=== PATIENT | male | born 1975 | race Caucasian/White ===

== ENCOUNTER 2020-04-27 09:11 | Emergency (ER) | payer OTHER, SELFPAY ==
[2020-04-27 09:19] VITALS: BP 171/91; PULSE 108; RESP 18; TEMP 37; O2SAT 94; BMI 41.8
--- NOTE | 2020-04-27 09:38 | ECG_ITS ---
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 Measurements Intervals [place] Rate: 105 P: 45 CA: 156 QRS: 33 QRSD: 116 T: 67 QT: 337 QTc: 447 Interpretive Statements SINUS TACHYCARDIA MODERATE INTRAVENTRICULAR CONDUCTION DELAY [110+ ms QRS DURATION] NONSPECIFIC T-WAVE ABNORMALITY ABNORMAL RHYTHM ECG Compared to ECG 07/29/2019 08:20:56 Intraventricular conduction delay now present Sinus rhythm no longer present T-wave abnormality still present Electronically Signed On 04-27-2020 19:41:54 CDT by Timur Contreras M.D. [id number]
--- NOTE | 2020-04-27 09:38 | XRR_ITS ---
PROCEDURE INFORMATION: Exam: XR Chest, 1 View Exam date and time: 04/27/2020 10:03 AM Age: 44 years old Clinical indication: Cough and dyspnea. TECHNIQUE: Imaging protocol: XR of the chest Views: 1 view. COMPARISON: CR Chest 1 [place] [id number] 07/29/2019 6:34 AM FINDINGS: Lungs: No lung consolidation or pulmonary edema. Pleural space: No pleural effusion or pneumothorax. Heart/Mediastinum: The cardiac silhouette is not enlarged. The mediastinal contours are normal. Bones/joints: No acute osseous abnormality. XR/XR chest 1V portable [id number] IMPRESSION: No acute abnormality.
--- NOTE | 2020-04-27 09:59 | W.ED.GENADLT ---
HPI - General Adult General: Chief complaint: General Medical Stated complaint: cough, body aches, dizzy, fever Time Seen by Provider: 04/27/20 09:12 History of Present Illness: HPI narrative: 44-year-old male comes in slight cough and fever that began yesterday is also had headache and myalgias been nauseous and dizzy the cough is been very minimally productive but of mostly clear sputum he had a low-grade temp at home of 99 7 had that initially on screening here but then when he got back to the exam room and was triaged it was measured at 98 6. He is not been around anyone he knows of that has COVID but he has been around several people who have been sick with symptoms suspicious for COVID. He does have a history of asthma. Onset (ago): day(s) Location: head and chest Radiation: non-radiation Severity: moderate Quality: dull (Headache) Relieving factors: none Exacerbating factors: none Associated symptoms: Reports cough, decreased appetite, dyspnea, fevers/chills, headache(s), malaise, nausea and short of breath; Deny chest pain, confusion, diaphoresis, rash, palpitations, seizures, syncope, vomiting or weakness Treatments prior to arrival: none Review of Systems Const: Reports: malaise; Denies: diaphoresis ENMT: Denies: throat pain, ear or mastoid pain, nasal discharge or nasal congestion Card: Denies: chest pain, palpitations or syncope Resp: Reports: dyspnea GI: Reports: nausea; Denies: vomiting : Denies: flank pain, dysuria, urinary frequency or urinary urgency Skin/Breast: Denies: rash Neuro: Reports: headache(s); Denies: confusion PFSH ED PFSH: Medical History (Updated 04/27/20 @ 12:04 by Baltazar Mock DO) Asthma Diabetes mellitus GERD (gastroesophageal reflux disease) Hypertension Morbid obesity Right tibial fracture Social History (Updated 04/27/20 @ 10:03 by Baltazar Mock DO) Smoking and tobacco status: never smoked Alcohol intake: current Alcohol intake frequency: few times a month Physical Exam Const: COMMON NORMALS: no acute distress GENERAL APPEARANCE: cooperative and comfortable ORIENTATION/CONSCIOUSNESS: Yes awake, Yes oriented to person, Yes oriented to place and Yes oriented to time HENMT: COMMON NORMALS: normocephalic, atraumatic and hearing grossly normal bilaterally HEAD & SCALP: normocephalic and atraumatic Eye: COMMON NORMALS: Equal, round and reactive pupils present, EOMs intact bilaterally, conjunctivae normal and no scleral icterus CONJUNCTIVA: Yes conjunctivae normal PUPIL: Yes Equal, round and reactive pupils present Neck/C-Spine: COMMON NORMALS: full ROM, no lymphadenopathy, supple and no JVD Lymph: LYMPHATIC: no lymphadenopathy noted and no lymphedema noted Resp: COMMON NORMALS: normal respiratory effort, No retractions and No use of accessory muscles AUSCULTATION: wheezes (Scant bilateral expiratory wheeze) expiratory wheezes and scattered wheezes Cardio: COMMON NORMALS: no JVD, regular rate, regular rhythm and No murmurs present (Cardio) RATE: regular rate RHYTHM: regular rhythm GI: COMMON NORMALS: Soft to palpation and No hepatosplenomegaly present AUSCULTATION: Yes normoactive bowel sounds PALPATION: Yes Soft to palpation, No Tenderness to palpation present (GI), No Guarding due to palpation present (GI) and Yes No hepatosplenomegaly present Extremity: COMMON NORMALS: normal to inspection, capillary refill normal, no clubbing, cyanosis or edema, no calf tenderness and no pedal edema Neuro: SENSORIUM/ORIENTATION: Yes oriented to person, Yes oriented to place and Yes oriented to time Skin: COMMON NORMALS: no rashes or lesions noted GENERAL SKIN EXAM: no rashes or lesions noted Course Vital Signs: Vital signs: Vital Signs Temperature 98.6 F 04/27/20 09:19 Pulse Rate 106 H 04/27/20 12:22 Respiratory Rate 16 04/27/20 12:22 Blood Pressure 140/73 04/27/20 12:22 Pulse Oximetry 96 04/27/20 12:22 MDM - General Adult MDM Narrative: Medical decision making narrative: Discussed the patient suspect he does have COVID-19 recommend he self quarantine until the results are available. If he has any worsening problems difficulty breathing or shortness of breath he should return to the emergency room use albuterol inhaler as needed. Lab Data: Labs: Lab Results 04/27/20 04/27/20 04/27/20 Range/Units 10:09 10:19 10:19 WBC (4.0-10.0) 10^3/ uL RBC (4.1-5.3) 10^6/u L Hgb (11.7-16.6) g/dL Hct (42.0-52.0) % MCV (80-94) fL MCH (28.0-34.0) pg MCHC (30.0-36.0) g/dL RDW (12.1-15.1) % Plt Count (130-400) 10^3/c mm MPV (7.4-10.4) fL Neut % (Auto) % Lymph % (Auto) % [place] % (Auto) % Eos % (Auto) % Baso % (Auto) % Neut # (Auto) (1.8-7.7) 10^3/u L Lymph # (Auto) (0.8-4.8) 10^3/u L [place] # (Auto) (0.2-0.9) 10^3/u L Eos # (Auto) (0.0-0.8) 10^3/u L Baso # (Auto) (0.0-0.1) 10^3/u L Nucleated RBC % (a uto) % Nucleated RBCs # /100WBC Fibrinogen 297 (174-498) mg/dL D-Dimer <= 0.27 (0-0.59) ug/mIFE U Specimen Type Arterial Sample Site Radial, left ABG pH 7.45 (7.35-7.45) ABG pCO2 39.3 (35-45) mmHg ABG pO2 72.9 L (80.0-100.0) mmH g ABG HCO3 27.1 H (22-26) mmol/L ABG Base Excess 2.9 H (-2.0-2.0) mmol/ L Aman Test Pos Hematocrit 42.2 (42-52) % O2 Delivery Device Room air FiO2 21.0 % Regional Environmental Manager ID Cak Sodium 136 (136-145) mmol/L Potassium 3.8 (3.5-5.1) mmol/L Chloride 98 (98-107) mmol/L Carbon Dioxide 26 (22-29) mmol/L Anion Gap 15.8 (5-19) BUN 12 (6-20) mg/dL Creatinine 0.9 (0.7-1.2) mg/dL GFR Calculation 91.3 (90-130) mL/min Glucose 205 H (65-115) mg/dL Calculated Osmolal ity 284 L (285-295) mOsm/k g Calcium 8.7 (8.5-10.5) mg/dL Ferritin 83 (30-400) ng/mL Total Bilirubin 0.3 (0.15-1.2) mg/dL AST 25 (0-40) U/L ALT 40 (0-41) U/L Alkaline Phosphata se 82 (40-130) IU/L Lactate Dehydrogen ase 174 (135-225) U/L Troponin T Baselin e (0-15) ng/L C-Reactive Protein 10.8 H (0.0-4.9) mg/L Total Protein 8.1 (6.6-8.7) g/dL Albumin 4.4 (3.5-5.2) g/dL Globulin 3.7 (1.3-4.6) g/dL Procalcitonin 0.09 (0-0.5) ng/mL Urine Color (Yellow) Urine Appearance (CLEAR) Urine pH (5-7) Ur Specific Gravit y (1.005-1.030) Urine Protein (Negative) Urine Glucose (UA) (Normal) Urine Ketones (Negative) Urine Blood (Negative) Urine Nitrate (Negative) Urine Bilirubin (NEGATIVE) Prot Sulfosalicyli c Acd (Negative) Urine Urobilinogen (Negative) mg/dL Ur Leukocyte [place] (Negative) SARS-CoV-2 RNA (RT -PCR) (NOT DETECTED) 04/27/20 04/27/20 04/27/20 Range/Units 10:19 10:19 10:37 WBC 4.6 (4.0-10.0) 10^3/ uL RBC 5.02 (4.1-5.3) 10^6/u L Hgb 14.3 (11.7-16.6) g/dL Hct 42.9 (42.0-52.0) % MCV 85.5 (80-94) fL MCH 28.5 (28.0-34.0) pg MCHC 33.3 (30.0-36.0) g/dL RDW 13.9 (12.1-15.1) % Plt Count 228 (130-400) 10^3/c mm MPV 10.2 (7.4-10.4) fL Neut % (Auto) 76.1 % Lymph % (Auto) 11.3 % [place] % (Auto) 9.8 % Eos % (Auto) 2.0 % Baso % (Auto) 0.4 % Neut # (Auto) 3.51 (1.8-7.7) 10^3/u L Lymph # (Auto) 0.5 L (0.8-4.8) 10^3/u L [place] # (Auto) 0.5 (0.2-0.9) 10^3/u L Eos # (Auto) 0.1 (0.0-0.8) 10^3/u L Baso # (Auto) 0.0 (0.0-0.1) 10^3/u L Nucleated RBC % (a uto) 0 % Nucleated RBCs # 0.0 /100WBC Fibrinogen (174-498) mg/dL D-Dimer (0-0.59) ug/mIFE U Specimen Type Sample Site ABG pH (7.35-7.45) ABG pCO2 (35-45) mmHg ABG pO2 (80.0-100.0) mmH g ABG HCO3 (22-26) mmol/L ABG Base Excess (-2.0-2.0) mmol/ L Aman Test Hematocrit (42-52) % O2 Delivery Device FiO2 % Regional Environmental Manager ID Sodium (136-145) mmol/L Potassium (3.5-5.1) mmol/L Chloride (98-107) mmol/L Carbon Dioxide (22-29) mmol/L Anion Gap (5-19) BUN (6-20) mg/dL Creatinine (0.7-1.2) mg/dL GFR Calculation (90-130) mL/min Glucose (65-115) mg/dL Calculated Osmolal ity (285-295) mOsm/k g Calcium (8.5-10.5) mg/dL Ferritin (30-400) ng/mL Total Bilirubin (0.15-1.2) mg/dL AST (0-40) U/L ALT (0-41) U/L Alkaline Phosphata se (40-130) IU/L Lactate Dehydrogen ase (135-225) U/L Troponin T Baselin e 6 (0-15) ng/L C-Reactive Protein (0.0-4.9) mg/L Total Protein (6.6-8.7) g/dL Albumin (3.5-5.2) g/dL Globulin (1.3-4.6) g/dL Procalcitonin (0-0.5) ng/mL Urine Color (Yellow) Urine Appearance (CLEAR) Urine pH (5-7) Ur Specific Gravit y (1.005-1.030) Urine Protein (Negative) Urine Glucose (UA) (Normal) Urine Ketones (Negative) Urine Blood (Negative) Urine Nitrate (Negative) Urine Bilirubin (NEGATIVE) Prot Sulfosalicyli c Acd (Negative) Urine Urobilinogen (Negative) mg/dL Ur Leukocyte [place] ase (Negative) SARS-CoV-2 RNA (RT -PCR) Detected A (NOT DETECTED) 04/27/20 Range/Units 11:02 WBC (4.0-10.0) 10^3/ uL RBC (4.1-5.3) 10^6/u L Hgb (11.7-16.6) g/dL Hct (42.0-52.0) % MCV (80-94) fL MCH (28.0-34.0) pg MCHC (30.0-36.0) g/dL RDW (12.1-15.1) % Plt Count (130-400) 10^3/c mm MPV (7.4-10.4) fL Neut % (Auto) % Lymph % (Auto) % [place] % (Auto) % Eos % (Auto) % Baso % (Auto) % Neut # (Auto) (1.8-7.7) 10^3/u L Lymph # (Auto) (0.8-4.8) 10^3/u L [place] # (Auto) (0.2-0.9) 10^3/u L Eos # (Auto) (0.0-0.8) 10^3/u L Baso # (Auto) (0.0-0.1) 10^3/u L Nucleated RBC % (a uto) % Nucleated RBCs # /100WBC Fibrinogen (174-498) mg/dL D-Dimer (0-0.59) ug/mIFE U Specimen Type Sample Site ABG pH (7.35-7.45) ABG pCO2 (35-45) mmHg ABG pO2 (80.0-100.0) mmH g ABG HCO3 (22-26) mmol/L ABG Base Excess (-2.0-2.0) mmol/ L Aman Test Hematocrit (42-52) % O2 Delivery Device FiO2 % Regional Environmental Manager ID Sodium (136-145) mmol/L Potassium (3.5-5.1) mmol/L Chloride (98-107) mmol/L Carbon Dioxide (22-29) mmol/L Anion Gap (5-19) BUN (6-20) mg/dL Creatinine (0.7-1.2) mg/dL GFR Calculation (90-130) mL/min Glucose (65-115) mg/dL Calculated Osmolal ity (285-295) mOsm/k g Calcium (8.5-10.5) mg/dL Ferritin (30-400) ng/mL Total Bilirubin (0.15-1.2) mg/dL AST (0-40) U/L ALT (0-41) U/L Alkaline Phosphata se (40-130) IU/L Lactate Dehydrogen ase (135-225) U/L Troponin T Baselin e (0-15) ng/L C-Reactive Protein (0.0-4.9) mg/L Total Protein (6.6-8.7) g/dL Albumin (3.5-5.2) g/dL Globulin (1.3-4.6) g/dL Procalcitonin (0-0.5) ng/mL Urine Color Yellow (Yellow) Urine Appearance Clear (CLEAR) Urine pH 8.0 H (5-7) Ur Specific Gravit y 1.010 (1.005-1.030) Urine Protein Neg (Negative) Urine Glucose (UA) 4+ H (Normal) Urine Ketones Negative (Negative) Urine Blood Neg (Negative) Urine Nitrate Negative (Negative) Urine Bilirubin Neg (NEGATIVE) Prot Sulfosalicyli c Acd Negative (Negative) Urine Urobilinogen Norm (Negative) mg/dL Ur Leukocyte Cierra ase Negative (Negative) SARS-CoV-2 RNA (RT -PCR) (NOT DETECTED) Discharge Plan Discharge Patient Disposition: Home Clinical Impression: Suspected 2019-nCoV infection, Asthma Condition: Stable Prescriptions: No Action glipizide 10 mg Tablet 10 mg PO BID RF: 0 aspirin 81 mg Tablet,Delayed Release (Dr/Ec) 81 mg PO DAILY RF: 0 ibuprofen 200 mg Tablet 800 mg PO PRN RF: 0 omeprazole 20 mg Capsule,Delayed Release(Dr/Ec) 20 mg PO DAILY RF: 0 lisinopril 5 mg Tablet 5 mg PO DAILY RF: 0 ProAir HFA 90 mcg/actuation Hfa Aerosol Inhaler 2 puff INHALATION Q4H PRN (Reason: Shortness Of Breath) RF: 0 Discharge Orders: Discharge Order (Routine); Ordered 04/27/20 Ordered By: Baltazar Mock Discharge Diet: Usual diet Discharge Activity: Limit activity as instructed Activity Restrictions/Additional Instructions: You were tested for Kovic today. I do suspect that you have the infection. We asked that you self quarantine until the results are back. We will call you soon as they are available Discharge Date/Time: 04/27/20 12:22 Coding Level of Care Code ED Shank Boner for [employer] Fwd Exam Comprehensive
[2020-04-27 10:20] VITALS: BP 161/98; PULSE 112; RESP 19; O2SAT 94
[2020-04-27 10:21] LABS: ABG PCO2 39.3 mmHg (35-45); ABG PH Result 7.45 (7.35-7.45); Arterial Blood Gas Hematocrit 42.2 % (42-52); Base Excess ABG 2.9 mmol/L (-2.0-2.0); Blood Gas Allen Test Pos; Blood Gas Operator Identificat CAK; Blood Gas Sample Site Radial, left; Blood Gas Sample Type Arterial; HCO3 ABG 27.1 mmol/L (22-26); Oxygen Device ROOM AIR; PO2 ABG 72.9 mmHg (80.0-100.0)
[2020-04-27 10:29] LABS: Basophils % 0.4 %; Eosinophils # 0.1 10^3/uL (0.0-0.8); Hematocrit 42.9 % (42.0-52.0); Hemoglobin 14.3 g/dL (11.7-16.6); Lymphocytes # 0.5 10^3/uL (0.8-4.8); Lymphocytes % 11.3 %; Mean Corpuscular HGB Conc 33.3 g/dL (30.0-36.0); Mean Corpuscular Hemoglobin 28.5 pg (28.0-34.0); Mean Corpuscular Volume 85.5 fL (80-94); Mean Platelet Volume 10.2 fL (7.4-10.4); Monocytes # 0.5 10^3/uL (0.2-0.9); Monocytes % 9.8 %; Neutrophils # 3.51 10^3/uL (1.8-7.7); Neutrophils % 76.1 %; Nucleated Red Blood Cells % 0 %; Platelet Count 228 10^3/cmm (130-400); Red Blood Count 5.02 10^6/uL (4.1-5.3); Red Cell Distribution Width 13.9 % (12.1-15.1); White Blood Count 4.6 10^3/uL (4.0-10.0)
[2020-04-27 10:46] LABS: Fibrinogen 297 mg/dL (174-498)
[2020-04-27 10:49] LABS: D Dimer <= 0.27 ug/mIFEU (0-0.59)
[2020-04-27 10:52] LABS: Troponin(5th) Baseline 6 ng/L (0-15)
[2020-04-27 11:05] LABS: Add Urine Microscopic? NO
[2020-04-27 11:09] LABS: Bilirubin Urine Neg (NEGATIVE); Blood Urine Neg (Negative); Glucose Urine UA 4+ (Normal); Ketones Urine Negative (Negative); Leukocyte Esterase Urine Negative (Negative); Nitrate Urine Negative (Negative); Protein Urine Neg (Negative); Sulfosalicylic Acid Urine Negative (Negative); Urine Appearance Clear (CLEAR); Urine Color Yellow (Yellow); Urobilinogen Urine Norm (Negative)
[2020-04-27 11:30] VITALS: BP 137/66; PULSE 108; RESP 16; O2SAT 95
[2020-04-27 11:32] LABS: Procalcitonin 0.09 ng/mL (0-0.5)
--- NOTE | 2020-04-27 11:38 | ECG_ITS ---
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 Measurements Intervals [place] Rate: 109 P: 62 AR: 152 QRS: 26 QRSD: 114 T: 71 QT: 321 QTc: 433 Interpretive Statements SINUS TACHYCARDIA MODERATE INTRAVENTRICULAR CONDUCTION DELAY [110+ ms QRS DURATION] NONSPECIFIC T-WAVE ABNORMALITY ABNORMAL RHYTHM ECG Compared to ECG 04/27/2020 10:10:04 No significant changes Electronically Signed On 04-27-2020 20:05:43 CDT by Timur Contreras M.D. [id number]
[2020-04-27 11:43] LABS: Alanine Aminotransferase 40 U/L (0-41); Albumin Level 4.4 g/dL (3.5-5.2); Alkaline Phosphatase 82 IU/L (40-130); Anion Gap 15.8 (5-19); Aspartate Amino Transferase 25 U/L (0-40); Blood Urea Nitrogen 12 mg/dL (6-20); C Reactive Protein 10.8 mg/L (0.0-4.9); Calcium 8.7 mg/dL (8.5-10.5); Carbon Dioxide 26 mmol/L (22-29); Chloride 98 mmol/L (98-107); Ferritin 83 ng/mL (30-400); Globulin 3.7 g/dL (1.3-4.6); Glomerular Filtration Rate 91.3 mL/min (90-130); Glucose 205 mg/dL (65-115); Lactate Dehydrogenase 174 U/L (135-225); Osmolality Calculated 284 mOsm/kg (285-295); Potassium 3.8 mmol/L (3.5-5.1); Sodium 136 mmol/L (136-145); Total Bilirubin 0.3 mg/dL (0.15-1.2); Total Protein 8.1 g/dL (6.6-8.7)
[2020-04-27 12:22] VITALS: BP 140/73; PULSE 106; RESP 16; O2SAT 96
[2020-04-28 15:27] LABS: Quest SARS-CoV-2 RNA DETECTED (NOT DETECTED)
--- NOTE | 2020-04-28 16:33 | PC.NURSE ---
Pt notified of positive COVID
== END 2020-04-27 12:22 | disposition home or self-care (01) ==
PROVIDERS: Emergency Provider Family Medicine
DX: U07.1 COVID-19 (principal); J45.909 Unspecified asthma, uncomplicated; Z79.82 Long term (current) use of aspirin; Z79.84 Long term (current) use of oral hypoglycemic drugs; E11.9 Type 2 diabetes mellitus without complications; I10 Essential (primary) hypertension
CPT/HCPCS: 12345; 36600; 71045; 80053; 81003; 82728; 82803; 83615; 84145; 84484; 85025; 85378; 85384; 86140; 87040; 87635; 93005; 99283; 99284

== ENCOUNTER 2020-05-04 17:00 | Emergency (ER) | payer OTHER, SELFPAY ==
[2020-05-04 17:01] VITALS: BP 142/96; PULSE 91; RESP 18; TEMP 37.1; O2SAT 94; BMI 41.8
--- NOTE | 2020-05-04 18:28 | XR_ITS ---
WS: [id number] EXAM: AP CHEST: PORTABLE UPRIGHT DATE OF EXAM: 05/04/2020, 1839 hours COMPARISON: Chest x-ray from 04/27/2020. HISTORY: Patient is 44 years old with Covid-19 infection. FINDINGS: The cardiac silhouette is normal in size. The mediastinal contours are normal. The pulmonary vas cularity is normal. There is patchy infiltrate which has developed in the peripheral aspect of the l eft chest. Upper, mid and lower aspect. I question some minimal patchy infiltrate in the perihilar re gions within the right hemithorax as well. There is no effusion or pneumothorax. No acute bony abno rmality is seen. XR/XR chest 1V portable [id number] IMPRESSION: Findings felt to represent interval development of bilateral pneumonia.
--- NOTE | 2020-05-04 18:29 | ECG_ITS ---
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 Measurements Intervals [place] Rate: 98 P: 46 [place]: 135 QRS: 15 QRSD: 107 T: 58 QT: 351 QTc: 449 Interpretive Statements SINUS RHYTHM WITH OCCASIONAL VENTRICULAR PREMATURE COMPLEXES Compared to ECG 04/27/2020 11:39:47 Ventricular premature complex(es) now present Sinus tachycardia no longer present Intraventricular conduction delay no longer present T-wave abnormality no longer present Electronically Signed On 05-04-2020 19:43:07 CDT by Timur Contreras M.D. [id number]
[2020-05-04 19:37] LABS: Basophils % 0.2 %; Eosinophils % 0.2 %; Hematocrit 45.5 % (42.0-52.0); Lymphocytes # 1.6 10^3/uL (0.8-4.8); Lymphocytes % 32.4 %; Mean Corpuscular Hemoglobin 27.6 pg (28.0-34.0); Mean Corpuscular Volume 83.8 fL (80-94); Mean Platelet Volume 10.6 fL (7.4-10.4); Monocytes # 0.5 10^3/uL (0.2-0.9); Neutrophils # 2.75 10^3/uL (1.8-7.7); Nucleated Red Blood Cells % 0 %; Platelet Count 239 10^3/cmm (130-400); Red Blood Count 5.43 10^6/uL (4.1-5.3); Red Cell Distribution Width 13.5 % (12.1-15.1); White Blood Count 4.8 10^3/uL (4.0-10.0)
[2020-05-04 19:55] LABS: INR 0.88 (0.8-1.2)
[2020-05-04 19:56] LABS: Fibrinogen 490 mg/dL (174-498)
[2020-05-04 19:57] LABS: D Dimer 0.28 ug/mIFEU (0-0.59)
[2020-05-04 19:58] LABS: Influenza A by IFA Negative (Negative); Influenza B by IFA Negative (Negative); Lactic Sepsis W/Reflex 0.8 mmol/L (0.5-2.2)
[2020-05-04 20:00] LABS: Troponin(5th) Baseline 7 ng/L (0-15)
[2020-05-04] MEDS: dexamethasone 10 mg/mL INJ IVP (20:03)
[2020-05-04] MEDS: enoxaparin 100 mg/mL Syringe SUBCUT (20:04)
[2020-05-04] MEDS: enoxaparin 30 mg/0.3 mL Syringe SUBCUT (20:04)
[2020-05-04 20:07] LABS: NT Pro B Type Natriuretic Pept 43 pg/mL (0-125); Procalcitonin 0.06 ng/mL (0-0.5)
[2020-05-04 20:19] LABS: Alanine Aminotransferase 53 U/L (0-41); Albumin Level 4.2 g/dL (3.5-5.2); Alkaline Phosphatase 80 IU/L (40-130); Anion Gap 15.8 (5-19); Aspartate Amino Transferase 31 U/L (0-40); Blood Urea Nitrogen 11 mg/dL (6-20); C Reactive Protein 27.5 mg/L (0.0-4.9); Calcium 8.6 mg/dL (8.5-10.5); Carbon Dioxide 24 mmol/L (22-29); Chloride 99 mmol/L (98-107); Ferritin 246 ng/mL (30-400); Globulin 3.8 g/dL (1.3-4.6); Glucose 234 mg/dL (65-115); Osmolality Calculated 287 mOsm/kg (285-295); Potassium 3.8 mmol/L (3.5-5.1); Sodium 135 mmol/L (136-145); Total Bilirubin 0.5 mg/dL (0.15-1.2)
--- NOTE | 2020-05-04 20:54 | ED_ITS ---
HPI - SOB/Dyspnea General: Chief Complaint: Shortness of Breath/Dyspnea Stated Complaint: SOB/COVID+ Time Seen by Provider: 05/04/20 17:31 History of Present Illness: HPI Narrative: This patient is a 44-year-old male presenting today with history of COVID and shortness of breath. He reports that he started having some symptoms last week. His is also sick. They both thought they were feeling a little better and then started feeling worse again. He comes in today because he feels like his albuterol inhaler is not helping his asthma. MD elicited complaint: shortness of breath and cough Pertinent past history: asthma and diabetes Onset (ago): week(s) (1) Timing: constant Severity: moderate Exacerbating factors: nothing Relieving factors: nothing Known history of: asthma and diabetes Associated symptoms: Reports cough, fever(s) and myalgias; Deny abdominal pain, chest pain, nausea or vomiting Review of Systems General: Reports: 10 or more systems reviewed and unremarkable except in HPI and below Const: Reports: fever(s), fatigue and malaise; Denies: chills Eyes: Denies: change in vision ENMT: Denies: odynophagia Card: Denies: chest pain or swelling of feet/ankles Resp: Reports: dyspnea and non-productive cough; Denies: productive cough GI: Denies: abdominal pain, nausea or vomiting : Denies: flank pain Musc: Denies: neck pain or back pain Skin/Breast: Denies: rash Neuro: Denies: headache(s), numbness in extremities or weakness in extremities Ovidio/Lymph: Denies: easy bruising or easy bleeding PFS ED PFSH: Medical History Asthma Diabetes mellitus GERD (gastroesophageal reflux disease) Hypertension Morbid obesity Right tibial fracture Social History Smoking and tobacco status: never smoked Alcohol intake: current Alcohol intake frequency: few times a month Physical Exam Const: COMMON NORMALS: no acute distress, patient oriented x3, no limitations and alert GENERAL APPEARANCE: cooperative and comfortable HENMT: HEAD & SCALP: normal to inspection FACE & SINUS: normal facial exam Eye: GENERAL EYE: appearance normal, both eyes and all related structures Neck/C-Spine: COMMON NORMALS: supple, no meningeal signs and no JVD Chest: COMMONS NORMALS: normal inspection of the chest Resp: COMMON NORMALS: normal respiratory effort (Frequent cough), No use of accessory muscles and clear to auscultation bilaterally AUSCULTATION: clear to auscultation bilaterally Cardio: COMMON NORMALS: no JVD, regular rate, regular rhythm and No murmurs present (Cardio) RATE: regular rate RHYTHM: regular rhythm GI: COMMON NORMALS: Normal to inspection, nondistended, normoactive bowel sounds present, Soft to palpation and non-tender INSPECTION: Yes normal to inspection AUSCULTATION: Yes normoactive bowel sounds PALPATION: Yes Soft to palpation Back/Pelvis: COMMON NORMALS: thoracic and lumbar spine normal to inspection Extremity: COMMON NORMALS: normal to inspection Neuro: COMMON NORMALS: patient oriented x3, moves all extremities, no focal motor deficits and no sensory deficits noted SENSORIUM/ORIENTATION: Yes alert MENINGEAL SIGNS: Yes no meningeal signs Psych: COMMON NORMALS: mental status grossly normal, cooperative and normal affect Skin: COMMON NORMALS: no rashes or lesions noted and turgor normal GENERAL SKIN EXAM: no rashes or lesions noted and turgor normal Course ED course: Patient with known COVID. He does have significant risk factors of diabetes and obesity. He also has asthma and hypertension. He is about day 7 or 8 of his illness. He is feeling some shortness of breath but his respiratory rate is normal and his oxygen saturation is adequate at 93 to 95% on room air. Labs and chest x-ray were done to help stratify his risk. He continued to be observed in the ED for some time. His sats remained good on room air. I did give him a dose of Decadron and presumptively Lovenox. I do not think he meets requirements for remdesivir. As his oxygen saturations are good I think he is okay to go home. We did discuss the expected progression of the illness and he understands that he may worsen over the next few days. He understands to return immediately if he does feel like he is getting any worse in any way. He does have a primary care doctor for follow-up. Vital Signs: Vital signs: Vital Signs Temperature 98.8 F 05/04/20 17:01 Pulse Rate 91 05/04/20 17:01 Respiratory Rate 18 05/04/20 17:01 Blood Pressure 142/96 05/04/20 17:01 Pulse Oximetry 94 05/04/20 17:01 MDM - SOB/Dyspnea 2 Lab Data: Labs: Lab Results 05/04/20 05/04/20 05/04/20 Range/Units 19:25 19:25 19:25 WBC 4.8 (4.0-10.0) 10^3/ uL RBC 5.43 H (4.1-5.3) 10^6/u L Hgb 15.0 (11.7-16.6) g/dL Hct 45.5 (42.0-52.0) % MCV 83.8 (80-94) fL MCH 27.6 L (28.0-34.0) pg MCHC 33.0 (30.0-36.0) g/dL RDW 13.5 (12.1-15.1) % Plt Count 239 (130-400) 10^3/c mm MPV 10.6 H (7.4-10.4) fL Neut % (Auto) 57.0 % Lymph % (Auto) 32.4 % [place] % (Auto) 10.0 % Eos % (Auto) 0.2 % Baso % (Auto) 0.2 % Neut # (Auto) 2.75 (1.8-7.7) 10^3/u L Lymph # (Auto) 1.6 (0.8-4.8) 10^3/u L [place] # (Auto) 0.5 (0.2-0.9) 10^3/u L Eos # (Auto) 0.0 (0.0-0.8) 10^3/u L Baso # (Auto) 0.0 (0.0-0.1) 10^3/u L Nucleated RBC % (a uto) 0 % Nucleated RBCs # 0.0 /100WBC PT 12.20 (12.1-14.9) SECO NDS INR 0.88 (0.8-1.2) Fibrinogen 490 (174-498) mg/dL D-Dimer 0.28 (0-0.59) ug/mIFE U Sodium 135 L (136-145) mmol/L Potassium 3.8 (3.5-5.1) mmol/L Chloride 99 (98-107) mmol/L Carbon Dioxide 24 (22-29) mmol/L Anion Gap 15.8 (5-19) BUN 11 (6-20) mg/dL Creatinine 0.7 (0.7-1.2) mg/dL GFR Calculation 122.0 (90-130) mL/min Glucose 234 H (65-115) mg/dL Calculated Osmolal ity 287 (285-295) mOsm/k g Lactic Acid (0.5-2.2) mmol/L Calcium 8.6 (8.5-10.5) mg/dL Ferritin 246 (30-400) ng/mL Total Bilirubin 0.5 (0.15-1.2) mg/dL AST 31 (0-40) U/L ALT 53 H (0-41) U/L Alkaline Phosphata se 80 (40-130) IU/L Troponin T Baselin e (0-15) ng/L C-Reactive Protein 27.5 H (0.0-4.9) mg/L NT-Pro-B Natriuret Pep 43 (0-125) pg/mL Total Protein 8.0 (6.6-8.7) g/dL Albumin 4.2 (3.5-5.2) g/dL Globulin 3.8 (1.3-4.6) g/dL Procalcitonin 0.06 (0-0.5) ng/mL Influenza Type A A g (Negative) Influenza Type B A g (Negative) 05/04/20 05/04/20 05/04/20 Range/Units 19:25 19:25 19:25 WBC (4.0-10.0) 10^3/ uL RBC (4.1-5.3) 10^6/u L Hgb (11.7-16.6) g/dL Hct (42.0-52.0) % MCV (80-94) fL MCH (28.0-34.0) pg MCHC (30.0-36.0) g/dL RDW (12.1-15.1) % Plt Count (130-400) 10^3/c mm MPV (7.4-10.4) fL Neut % (Auto) % Lymph % (Auto) % [place] % (Auto) % Eos % (Auto) % Baso % (Auto) % Neut # (Auto) (1.8-7.7) 10^3/u L Lymph # (Auto) (0.8-4.8) 10^3/u L [place] # (Auto) (0.2-0.9) 10^3/u L Eos # (Auto) (0.0-0.8) 10^3/u L Baso # (Auto) (0.0-0.1) 10^3/u L Nucleated RBC % (a uto) % Nucleated RBCs # /100WBC PT (12.1-14.9) SECO NDS INR (0.8-1.2) Fibrinogen (174-498) mg/dL D-Dimer (0-0.59) ug/mIFE U Sodium (136-145) mmol/L Potassium (3.5-5.1) mmol/L Chloride (98-107) mmol/L Carbon Dioxide (22-29) mmol/L Anion Gap (5-19) BUN (6-20) mg/dL Creatinine (0.7-1.2) mg/dL GFR Calculation (90-130) mL/min Glucose (65-115) mg/dL Calculated Osmolal ity (285-295) mOsm/k g Lactic Acid 0.8 (0.5-2.2) mmol/L Calcium (8.5-10.5) mg/dL Ferritin (30-400) ng/mL Total Bilirubin (0.15-1.2) mg/dL AST (0-40) U/L ALT (0-41) U/L Alkaline Phosphata se (40-130) IU/L Troponin T Baselin e 7 (0-15) ng/L C-Reactive Protein (0.0-4.9) mg/L NT-Pro-B Natriuret Pep (0-125) pg/mL Total Protein (6.6-8.7) g/dL Albumin (3.5-5.2) g/dL Globulin (1.3-4.6) g/dL Procalcitonin (0-0.5) ng/mL Influenza Type A A g Negative (Negative) Influenza Type B A g Negative (Negative) Discharge Plan Discharge Patient Disposition: Home Clinical Impression: COVID-19 Diabetes mellitus Qualifiers: Diabetes mellitus type: type 2 Diabetes mellitus manager long term care insulin use: uns pecified manager long term care insulin use status Diabetes mellitus complication status: with other specified complication Qualified Code(s): E11.69 - Type 2 diabetes mellitus with other specified complication Condition: Stable Prescriptions: No Action glipizide 10 mg Tablet 10 mg PO BID RF: 0 aspirin 81 mg Tablet,Delayed Release (Dr/Ec) 81 mg PO DAILY RF: 0 ibuprofen 200 mg Tablet 800 mg PO PRN RF: 0 omeprazole 20 mg Capsule,Delayed Release(Dr/Ec) 20 mg PO DAILY RF: 0 lisinopril 5 mg Tablet 5 mg PO DAILY RF: 0 albuterol sulfate [ProAir HFA] 90 mcg/actuation Hfa Aerosol Inhaler 2 puff INHALATION Q4H PRN (Reason: Shortness Of Breath) RF: 0 Discharge Orders: Discharge Order (Routine); Ordered 05/04/20 Ordered By: Deja Best Discharge Diet: Usual diet Discharge Activity: Resume usual activity Patient Instructions: Upper Respiratory Infection (ED) Activity Restrictions/Additional Instructions: Return to the emergency department if any worsening in your symptoms. Continue your regular medications. You can continue [id number] cough medicine. 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
[2020-05-04 21:08] VITALS: BP 147/95; PULSE 93; RESP 14; O2SAT 95
[2020-05-04 21:56] LABS: Troponin 5 2HR 7.03 ng/L (0-15); Troponin 5 2HR Delta 0.03 ABS# (0-10)
== END 2020-05-04 21:09 | disposition home or self-care (01) ==
PROVIDERS: Emergency Provider Emergency Medicine
DX: U07.1 COVID-19 (principal); E11.69 Type 2 diabetes mellitus with other specified complication; Z79.84 Long term (current) use of oral hypoglycemic drugs; Z79.82 Long term (current) use of aspirin; J45.909 Unspecified asthma, uncomplicated; I10 Essential (primary) hypertension
CPT/HCPCS: 12345; 36415; 71045; 80053; 82728; 83605; 83880; 84145; 84484; 85025; 85378; 85384; 85610; 86140; 87040; 87804; 93005; 96372; 96374; 96375; 99283; 99284; J1100; J1650

== ENCOUNTER 2021-04-19 22:45 | Emergency (ER) | payer MEDICAID, SELFPAY ==
[2021-04-19 22:52] VITALS: BP 140/81; PULSE 69; RESP 20; TEMP 36.7; O2SAT 94; BMI 41.4
--- NOTE | 2021-04-19 23:01 | XRR_ITS ---
PROCEDURE INFORMATION: Exam: XR Left Knee Exam date and time: 04/19/2021 11:01 PM Age: 45 years old Clinical indication: Pain; Knee; Left TECHNIQUE: Imaging protocol: XR Left knee. Views: 3 views. COMPARISON: No relevant prior studies available. FINDINGS: Bones/joints: Normal. Soft tissues: Normal. XR/XR knee LT 3V* [id number] IMPRESSION: No acute findings.
--- NOTE | 2021-04-20 00:26 | W.ED.EXTPRO ---
HPI - Extremity Problem General: Chief complaint: Extremity Injury, Lower Stated complaint: Left Knee Swollen Time Seen by Provider: 04/19/21 23:28 History of Present Illness: HPI Narrative: Patient is a 45-year-old male comes to the ED with left knee pain and swelling. Injury occurred 1 week ago. Patient says he was getting up out of his chair and felt his left knee pop. he describes feeling like lower leg stayed in one position and his upper leg shifted forward causing separation of the knee. He went and saw his PCP approximately 5 days ago and prescribed him some ibuprofen. Patient says is left knee has not gotten any better since his injury a week ago. Pain worsens with any weightbearing on left leg. He says he is able to flex and extend knee with minimal pain. Associated symptoms: Deny chest pain, fever(s) or rash Review of Systems Const: Denies: fever(s), chills or fatigue Eyes: Denies: change in vision or eye discomfort ENMT: Denies: throat pain, odynophagia, nasal discharge or nasal congestion Card: Denies: chest pain, palpitations, edema, swelling of feet/ankles, dyspnea on exertion or orthopnea Resp: Denies: dyspnea, productive cough or non-productive cough GI: Denies: abdominal pain, nausea, vomiting, diarrhea, constipation or hematochezia : Denies: flank pain, difficulty urinating, dysuria or hematuria Musc: Reports: extremity pain (Left knee) and extremity swelling (Left knee); Denies: neck pain or back pain Skin/Breast: Denies: rash or new lesions Neuro: Denies: headache(s), numbness in extremities or weakness in extremities [facility] ED PFSH: Medical History Asthma Diabetes mellitus GERD (gastroesophageal reflux disease) Hypertension Morbid obesity Right tibial fracture Social History Smoking and tobacco status: never smoked Alcohol intake: current Alcohol intake frequency: few times a month Physical Exam Const: COMMON NORMALS: no acute distress, patient oriented x3 and alert GENERAL APPEARANCE: cooperative and comfortable NUTRITIONAL APPEARANCE: obese HENMT: COMMON NORMALS: normocephalic HEAD & SCALP: normocephalic MOUTH: Normal oral and palatal mucosa present THROAT: posterior oropharynx normal and uvula midline Neck/C-Spine: COMMON NORMALS: supple GENERAL: Yes normal visual inspection Resp: COMMON NORMALS: normal respiratory effort, No retractions, No use of accessory muscles and clear to auscultation bilaterally AUSCULTATION: clear to auscultation bilaterally Cardio: COMMON NORMALS: regular rate, regular rhythm, S1 normal heart sound present, S2 normal heart sound present, No gallops present (Cardio), No clicks present (Cardio), No murmurs present (Cardio) and Peripheral pulses 2+ throughout RATE: regular rate RHYTHM: regular rhythm HEART SOUNDS: S1 normal heart sound present and S2 normal heart sound present PERIPHERAL PULSES: Peripheral pulses 2+ throughout GI: COMMON NORMALS: Normal to inspection, nondistended, normoactive bowel sounds present, Soft to palpation, non-tender and no masses PALPATION: Yes Soft to palpation : COMMON NORMALS: Yes no CVA tenderness BLADDER/KIDNEY EXAM: Yes no CVA tenderness Back/Pelvis: COMMON NORMALS: no CVA tenderness Extremity: GENERAL: Yes normal exam except as noted LEFT LOWER EXTREMITY: Yes knee joint Left knee: Yes inspection (No visible deformity or ecchymosis noted. Swelling present.), Yes palpation (Tender on the posterior aspect of knee and the anterior superior aspect of ), Yes ROM (Full range of motion with minimal pain) and Yes neurovascular exam (Intact) Neuro: COMMON NORMALS: patient oriented x3 and moves all extremities SENSORIUM/ORIENTATION: Yes alert Skin: GENERAL SKIN EXAM: dry skin Course Vital Signs: Vital signs: Vital Signs Temperature 98.0 F 04/19/21 22:52 Pulse Rate 75 04/20/21 01:25 Respiratory Rate 19 H 04/20/21 00:37 Blood Pressure 127/77 04/20/21 01:25 Pulse Oximetry 96 04/20/21 01:25 MDM - Extremity (Nontraumatic) MDM Narrative: Medical decision making narrative: Patient is a 45-year-old male comes to the ED with left knee pain. Pain occurs with weightbearing. Patient injured his left knee when getting out of a chair a week ago. Pain and swelling has not improved over the past week. Exam findings show some tenderness to palpation over the posterior aspect of the knee. Neurovascular intact. Patient has normal range of motion with minimal pain in left knee. X-ray of left knee showed no acute fractures or findings. Patient was put in a knee immobilizer and given crutches. I placed an order with case management for patient be referred to Ortho since no improvement in a week out from injury. Patient diagnosed with an injury to left knee discharged home with a prescription for hydrocodone as needed for pain. Return to ED precautions given. Patient told telehealth case manager will contact them in the next several days to set up an appointment with orthopedic for further evaluation. Patient understood agree with plan. Imaging Data^: Xray Ortho: Attestation: I personally reviewed and interpreted this imaging study as follows: My impression: Left knee x-ray?no acute fractures or findings noted. Discharge Plan Discharge Patient Disposition: Home Clinical Impression: Injury of knee, left Qualifiers: Encounter type: initial encounter Qualified Code(s): S89.92XA - Unspecified injury of left lower leg, initial encounter Condition: Stable Prescriptions: No Action glipizide 10 mg Tablet 10 mg PO BID RF: 0 aspirin 81 mg Tablet,Delayed Release (Dr/Ec) 81 mg PO DAILY RF: 0 ibuprofen 200 mg Tablet 800 mg PO PRN RF: 0 omeprazole 20 mg Capsule,Delayed Release(Dr/Ec) 20 mg PO DAILY RF: 0 lisinopril 5 mg Tablet 5 mg PO DAILY RF: 0 albuterol sulfate [ProAir HFA] 90 mcg/actuation Hfa Aerosol Inhaler 2 puff INHALATION Q4H PRN (Reason: Shortness Of Breath) RF: 0 Discharge Orders: Discharge ED (Routine); Ordered 04/20/21 Ordered By: Yonatan Burch Discharge Diet: Regular Discharge Activity: Limit activity as instructed and Use walker/crutches as instructed Patient Instructions: Knee Pain (ED), Opioid Safety Activity Restrictions/Additional Instructions: Follow-up with medical provider as directed. merchandising execution manager will contact you in the next several days set up an appointment with orthopedic doctor. Use crutches and limit weightbearing until seen by orthopedic doctor. Wear knee immobilizer as well to help with pain and healing. Take medications as prescribed. Return to the ER or your medical provider if condition worsens. Please read and understand discharge instructions. Thank you for choosing [facility] for your healthcare needs today. Please realize this is an emergency room and that we are providing you with a medical screening exam and this may not be complete and all inclusive of all the testing and or work up that you may need to determine your ailment or severity of your illness. It is very important that you follow up as instructed or that you return to the Emergency Department should you have concerns or if your condition changes or worsens in any way. 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
[2021-04-20 00:37] VITALS: BP 141/74; PULSE 73; PULSE 75; RESP 19; O2SAT 96
[2021-04-20] MEDS: HYDROcodone-acetaminophen 5-325 mg Tablet 1 TAB PO (00:57)
[2021-04-20 01:25] VITALS: BP 127/77; PULSE 75; O2SAT 96
--- NOTE | 2021-04-28 14:00 | DCPLANNER ---
clinical services manager had message to schedule a follow up appointment for patient with ortho. Patient had a follow up appointment scheduled for 04.27.21 - patient did attend appointment.
== END 2021-04-20 01:26 | disposition home or self-care (01) ==
PROVIDERS: Emergency Provider Physician Assistant
DX: S89.92XA Unspecified injury of left lower leg, initial encounter (principal); Z79.82 Long term (current) use of aspirin; Z79.84 Long term (current) use of oral hypoglycemic drugs; E11.9 Type 2 diabetes mellitus without complications; I10 Essential (primary) hypertension; X58.XXXA Exposure to other specified factors, initial encounter
CPT/HCPCS: 29530; 73562; 99283; E0114

== ENCOUNTER 2021-04-29 19:35 | Emergency (ER) | payer MEDICAID, SELFPAY ==
[2021-04-29 19:43] VITALS: BP 142/97; PULSE 94; RESP 16; TEMP 36.2; O2SAT 96; BMI 40.4
--- NOTE | 2021-04-29 20:05 | XRR_ITS ---
PROCEDURE INFORMATION: Exam: XR Left Knee Exam date and time: 04/29/2021 8:05 PM Age: 45 years old Clinical indication: Injury or trauma; Fall; Blunt trauma; Knee; Left TECHNIQUE: Imaging protocol: XR Left knee. Views: 3 views. COMPARISON: CR (LOW EXM, ) 04/20/2021 12:05 AM FINDINGS: There is narrowing of the medial compartment of the knee joint. The there is some spurring of the medial femoral condyle and medial tibial plateau. The lateral compartment is well maintained. There is some mild spurring along the superior patella. There is a joint effusion. XR/XR knee LT 3V* [id number] IMPRESSION: 1. Degenerative changes. 2. Joint effusion. 3. No fracture.
[2021-04-29 20:13] VITALS: BP 155/78; PULSE 79; RESP 18; O2SAT 95
--- NOTE | 2021-04-29 21:08 | ED_ITS ---
HPI - Extremity Problem General: Chief complaint: Extremity Injury, Lower Stated complaint: L knee pain Time Seen by Provider: 04/29/21 20:05 Source: patient Mode of arrival: ambulatory Limitations: no limitations History of Present Illness: HPI Narrative: Several recent injuries to left knee currently under care of Dr. Okeefe. Awaiting MRI of knee. However this evening while going down the stairs patient felt a pop in his left knee followed by immediate pain. MD Complaint: joint pain Onset (ago): hour(s) Pain Consistency: constant Location: left Severity scale (1-10): 5 Quality: dull Radiation: distal Relieving factors: immobilization and elevation Exacerbating factors: range of motion and weight bearing Associated symptoms: Reports no associated symptoms Review of Systems General: Reports: 10 or more systems reviewed and unremarkable except in HPI and below PFSH ED PFSH: Medical History (Updated 04/29/21 @ 21:46 by Karlie Gonzales APRN) Asthma Diabetes mellitus GERD (gastroesophageal reflux disease) Hypertension Morbid obesity Right tibial fracture Social History Smoking and tobacco status: never smoked Alcohol intake: current Alcohol intake frequency: few times a month Physical Exam Const: COMMON NORMALS: no acute distress, average body habitus, patient oriented x3, no limitations, healthy appearing, alert and well nourished HENMT: COMMON NORMALS: normocephalic and atraumatic HEAD & SCALP: normocephalic and atraumatic Neck/C-Spine: COMMON NORMALS: no JVD Resp: COMMON NORMALS: normal respiratory effort, No retractions, No use of accessory muscles, clear to auscultation bilaterally and percussion normal AUSCULTATION: clear to auscultation bilaterally PERCUSSION: percussion normal Cardio: COMMON NORMALS: no JVD, regular rate, regular rhythm, S1 normal heart sound present, S2 normal heart sound present, No gallops present (Cardio), No clicks present (Cardio), No murmurs present (Cardio), No rub (Cardio) and Peripheral pulses 2+ throughout RATE: regular rate RHYTHM: regular rhythm HEART SOUNDS: S1 normal heart sound present and S2 normal heart sound present PERIPHERAL PULSES: Peripheral pulses 2+ throughout Extremity: LEFT LOWER EXTREMITY: Yes knee joint Left knee: Yes ROM (Limited due to pain) and Yes neurovascular exam (Intact) Neuro: COMMON NORMALS: patient oriented x3 SENSORIUM/ORIENTATION: Yes alert Skin: COMMON NORMALS: no rashes or lesions noted, no wounds, turgor normal, no jaundice, no petechiae and no mottling GENERAL SKIN EXAM: no rashes or lesions noted and turgor normal Course Vital Signs: Vital signs: Vital Signs Temperature 97.1 F L 04/29/21 19:43 Pulse Rate 79 04/29/21 20:13 Respiratory Rate 18 04/29/21 20:13 Blood Pressure 155/78 04/29/21 20:13 Pulse Oximetry 95 04/29/21 20:13 MDM - Extremity (Nontraumatic) Imaging Data^: Xray Ortho: Radiologist's impression: Indira Lebron110Jorge Alberto [facility] [place], [place] [address]PFqh ReportSigned Patient: Rebecca Win #: [id number]: [id number]#:[id number]/Sex: 45 / MADM Date: 04/29/21Loc: ERRoom/Bed:Attending Dr: Ordering Provider/Ordering MD: Karlie Gonzales Date of Service: 04/29/21 Procedure(s): XR knee LT 3V* [id number] Accession Number(s): [id number] Report Number: [id number] PROCEDURE INFORMATION: Exam: XR Left Knee Exam date and time: 04/29/2021 8:05 PM Age: 45 years old Clinical indication: Injury or trauma; Fall; Blunt trauma; Knee; Left TECHNIQUE: Imaging protocol: XR Left knee. Views: 3 views. COMPARISON: CR (LOW EXM, ) 04/20/2021 12:05 AM FINDINGS: There is narrowing of the medial compartment of the knee joint. The there is some spurring of the medial femoral condyle and medial tibial plateau. The lateral compartment is well maintained. There is some mild spurring along the superior patella. There is a joint effusion. XR/XR knee LT 3V* [id number] IMPRESSION: 1. Degenerative changes. 2. Joint effusion. 3. No fracture. Dictated By:Sami Sheikh MDSigned By:Sami Sheikh MDSigned Date/Time:04/29/212158DD/ 56 Discharge Plan Discharge Patient Disposition: Home Clinical Impression: Injury of left knee Qualifiers: Encounter type: initial encounter Qualified Code(s): S89.92XA - Unspecified injury of left lower leg, initial encounter Condition: Stable Prescriptions: New Celebrex 200 mg capsule 200 mg PO BID Qty: 14 RF: 0 Held ibuprofen 200 mg Tablet 800 mg PO PRN RF: 0 Hold Instructions: Do not take while taking celebrex. No Action Januvia 100 mg tablet 100 mg PO DAILY RF: 0 glipizide 10 mg Tablet 10 mg PO BID RF: 0 aspirin 81 mg Tablet,Delayed Release (Dr/Ec) 81 mg PO DAILY RF: 0 omeprazole 20 mg Capsule,Delayed Release(Dr/Ec) 20 mg PO DAILY RF: 0 albuterol sulfate [ProAir HFA] 90 mcg/actuation Hfa Aerosol Inhaler 2 puff INHALATION Q4H PRN (Reason: Shortness Of Breath) RF: 0 Discharge Orders: Discharge ED (Routine); Ordered 04/29/21 Ordered By: Karlie Gonzales Referrals: Wei Okeefe DO [Physician] - 4-7 days Lisa Tolentino DO [Primary Care Provider] - Discharge Diet: Usual diet Discharge Activity: Limit activity as instructed Patient Instructions: Opioid Safety Activity Restrictions/Additional Instructions: Wear immobilizer until seen by , Non-weight bearing until seen and released by Stand Alone Forms: Work/School Release Coding Level of Care 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
[2021-04-29 22:15] VITALS: BP 159/100; PULSE 75; RESP 18; O2SAT 96
== END 2021-04-29 22:17 | disposition home or self-care (01) ==
PROVIDERS: Emergency Provider Nurse Practitioner Family; PCP Family Medicine
DX: S89.92XA Unspecified injury of left lower leg, initial encounter (principal); Z79.84 Long term (current) use of oral hypoglycemic drugs; Z79.82 Long term (current) use of aspirin; E11.9 Type 2 diabetes mellitus without complications; I10 Essential (primary) hypertension; X58.XXXA Exposure to other specified factors, initial encounter
CPT/HCPCS: 73562; 99282

== ENCOUNTER 2021-05-08 08:55 | Outpatient (CLI) | payer MEDICAID, SELFPAY ==
--- NOTE | 2021-05-08 09:30 | MR_ITS ---
WS: [id number] MRI LEFT KNEE NONCONTRAST TECHNIQUE: Axial PD, coronal PD fat sat, coronal PD, sagittal PD, and sagittal PD fat-sat images obta ined. CLINICAL INFORMATION: S89.92XA - Unspecified injury of left lower leg, initial ... COMPARISON: None. FINDINGS: Distal quadriceps and patella tendons are intact. Small suprapatellar effusion. Prepatellar subcutane ous soft tissue edema. Diffuse heterogeneity involving the ACL with mucoid degeneration. High-grade intrasubstance tear invo lving the ACL with fluid signal abnormality. A few intact fibers are visualized. Normal PCL. Chronic thinning of the medial and lateral meniscus. No acute appearing meniscal tears. Moderate sy dromalacia patella. No subchondral edema. Normal MCL and LCL. Normal popliteal fossa. MR/MR knee LT wo con* [id number] IMPRESSION: 1. High-grade partial intrasubstance tear of the ACL with edema and associated mucoid degeneration. 2. Normal PCL. 3. Chronic thinning of the medial and lateral meniscus. No acute appearing men iscal tears. 4. 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 5. Moderate chondromalacia patella. 6. Normal MCL and LCL. 7. Small suprapatellar effusion. Outbridge grading:
== END 2021-05-08 08:56 | disposition home or self-care (01) ==
LOC: RADSHAW 08:58
PROVIDERS: PCP Family Medicine; Visit Provider Orthopaedic Surgery
DX: M25.462 Effusion, left knee (principal); M22.42 Chondromalacia patellae, left knee; S83.512A Sprain of anterior cruciate ligament of left knee, initial encounter; X58.XXXA Exposure to other specified factors, initial encounter
CPT/HCPCS: 73721

== ENCOUNTER 2021-05-23 06:00 | Outpatient (RCR) | payer SELFPAY | END 2021-06-18 23:59 | disposition home or self-care (01) | LOC: GPT 06:00 | PROVIDERS: PCP Family Medicine; Referring Provider Orthopaedic Surgery; Visit Provider Orthopaedic Surgery | DX: M17.12 Unilateral primary osteoarthritis, left knee (principal) | CPT/HCPCS: 97032; 97110; 97112; 97161; 97164; 97530 ==

== ENCOUNTER 2021-06-19 06:00 | Outpatient (RCR) | payer SELFPAY | END 2021-07-18 23:59 | disposition home or self-care (01) | LOC: GPT 06:00 | PROVIDERS: PCP Family Medicine; Referring Provider Orthopaedic Surgery; Visit Provider Orthopaedic Surgery | DX: S83.512D Sprain of anterior cruciate ligament of left knee, subsequent encounter (principal); X58.XXXD Exposure to other specified factors, subsequent encounter | CPT/HCPCS: 97032; 97110; 97112; 97164 ==

== ENCOUNTER 2021-07-19 06:00 | Outpatient (RCR) | payer SELFPAY | END 2021-08-01 23:59 | disposition home or self-care (01) | LOC: GPT 06:00 | PROVIDERS: PCP Family Medicine; Visit Provider Orthopaedic Surgery | DX: S83.512A Sprain of anterior cruciate ligament of left knee, initial encounter (principal); X58.XXXA Exposure to other specified factors, initial encounter | CPT/HCPCS: 97110 ==

== ENCOUNTER 2021-12-23 14:31 | Emergency (ER) | payer MEDICAID, SELFPAY ==
[2021-12-23 14:47] VITALS: BP 146/76; PULSE 93; RESP 18; TEMP 37; O2SAT 96
--- NOTE | 2021-12-23 15:02 | W.ED.ABDPA2 ---
HPI - Abdominal Pain General: Chief Complaint: Abdominal Pain Stated Complaint: ABD Pain Time Seen by Provider: 12/23/21 15:02 Source: patient Mode of arrival: ambulatory Limitations: no limitations History of Present Illness: 46-year-old male presents emergency room complaining of abdominal pain that has had for the last 7 to 10 days. Worsening overnight with increasing diarrhea. Patient denies any dysuria urgency or frequency. Has not had any vomiting but has been nauseous.. No recent antibiotics. No hematochezia melena hematemesis or coffee-ground emesis. Several years ago he states he had a colonoscopy and was told it was essentially normal. MD elicited complaint: abdominal pain Onset (ago): day(s) (10) Pain Consistency: intermittent Location: Diffuse Severity: mild Quality: cramping Radiation: none Migration to: no migration Exacerbating factors: nothing Relieving factors: nothing Associated Symptoms: Reports change in bowel habits, change in stool character, GI cramping, diarrhea and nausea; Denies anorexia, belching, bloating, chills, coffee ground emesis, constipation, dyspepsia, dysuria, excessive flatus, fever(s), heartburn, hematochezia, hematuria, hematemesis, fecal incontinence, loose stools, melena, poor appetite, syncope and vomiting Review of Systems Const: Denies: fever(s) or chills Card: Denies: chest pain, palpitations, irregular heart rhythm or syncope Resp: Denies: dyspnea, productive cough or non-productive cough GI: Reports: abdominal pain, nausea, diarrhea, GI cramping, change in bowel habits and change in stool character; Denies: vomiting, hematemesis, coffee ground emesis, heartburn, constipation, bloating, belching, excessive flatus, fecal incontinence, hematochezia or melena : Denies: flank pain, difficulty urinating, dysuria, urinary frequency, urinary urgency or hematuria Musc: Denies: back pain PFSH ED PFSH: Medical History Asthma Diabetes mellitus GERD (gastroesophageal reflux disease) Hypertension Morbid obesity Psychiatric care Right tibial fracture Social History Smoking and tobacco status: current every day smoker Alcohol intake: current Alcohol intake frequency: few times a month Physical Exam Const: GENERAL APPEARANCE: cooperative and comfortable ORIENTATION/CONSCIOUSNESS: Yes awake, Yes oriented to person, Yes oriented to place and Yes oriented to time HENMT: COMMON NORMALS: normocephalic, atraumatic and hearing grossly normal bilaterally HEAD & SCALP: normocephalic and atraumatic Neck/C-Spine: COMMON NORMALS: no JVD Resp: COMMON NORMALS: normal respiratory effort, No retractions, No use of accessory muscles and clear to auscultation bilaterally AUSCULTATION: clear to auscultation bilaterally Cardio: COMMON NORMALS: no JVD, regular rate, regular rhythm and No murmurs present (Cardio) RATE: regular rate RHYTHM: regular rhythm GI: COMMON NORMALS: No hepatosplenomegaly present AUSCULTATION: Yes normoactive bowel sounds PALPATION: Yes Tenderness to palpation present (GI) (Mild tenderness no guarding or rebound no peritoneal signs) Details: LLQ, No Guarding due to palpation present (GI) and Yes No hepatosplenomegaly present Extremity: COMMON NORMALS: normal to inspection, capillary refill normal, no clubbing, cyanosis or edema, no calf tenderness and no pedal edema Neuro: SENSORIUM/ORIENTATION: Yes oriented to person, Yes oriented to place and Yes oriented to time Skin: COMMON NORMALS: no rashes or lesions noted GENERAL SKIN EXAM: no rashes or lesions noted Course Vital Signs: Vital signs: Vital Signs Temperature 98.6 F 12/23/21 14:47 Pulse Rate 93 12/23/21 14:47 Respiratory Rate 18 12/23/21 14:47 Blood Pressure 146/76 12/23/21 14:47 Pulse Oximetry 96 12/23/21 14:47 MDM - Abdominal Pain Medical Decision Making White counts normal minimal left shift. Exam consistent with diverticulitis no peritoneal signs at all believe would benefit from a CT is unlikely to have an abscess or perforation given his exam and labs and vital signs. Recommend starting on Cipro and Flagyl. Patient did mention he has some chronic abdominal cramping and loose stools some of that may be due to the Victoza he can follow-up with his primary care doctor about the possibility of changing if that persists or worsens for him. Medical Records I reviewed the patient's medical records. Lab Data I reviewed the patient's lab results. : 12/23/21 14:58 12/23/21 14:58 Labs/Radiology: Laboratory Results WBC 9.8 10^3/uL (4.0-10.0) 12/23/21 14:58 RBC 5.06 10^6/uL (4.1-5.3) 12/23/21 14:58 Hgb 14.3 g/dL (11.7-16.6) 12/23/21 14:58 Hct 43.3 % (42.0-52.0) 12/23/21 14:58 MCV 85.6 fl (80-94) 12/23/21 14:58 MCH 28.3 pg (28.0-34.0) 12/23/21 14:58 MCHC 33.0 g/dL (30.0-36.0) 12/23/21 14:58 RDW 14.6 % (12.1-15.1) 12/23/21 14:58 Plt Count 242 10^3/cmm (130-400) 12/23/21 14:58 MPV 10.8 fL (7.4-10.4) H 12/23/21 14:58 Neut % (Auto) 84.0 % 12/23/21 14:58 Lymph % (Auto) 9.0 % 12/23/21 14:58 Alfalfa % (Auto) 6.1 % 12/23/21 14:58 Eos % (Auto) 0.3 % 12/23/21 14:58 Baso % (Auto) 0.2 % 12/23/21 14:58 Neut # (Auto) 8.19 10^3/uL (1.8-7.7) H 12/23/21 14:58 Lymph # (Auto) 0.9 10^3/uL (0.8-4.8) 12/23/21 14:58 Alfalfa # (Auto) 0.6 10^3/uL (0.2-0.9) 12/23/21 14:58 Eos # (Auto) 0.0 10^3/uL (0.0-0.8) 12/23/21 14:58 Baso # (Auto) 0.0 10^3/uL (0.0-0.1) 12/23/21 14:58 Nucleated RBC % (auto) 0 % 12/23/21 14:58 Nucleated RBCs # 0.0 /100WBC 12/23/21 14:58 Sodium 136 mmol/L (136-145) 12/23/21 14:58 Potassium 3.4 mmol/L (3.5-5.1) L 12/23/21 14:58 Chloride 100 mmol/L (98-107) 12/23/21 14:58 Carbon Dioxide 25 mmol/L (22-29) 12/23/21 14:58 Anion Gap 14.4 (5-19) 12/23/21 14:58 BUN 12 mg/dL (6-20) 12/23/21 14:58 Creatinine 0.7 mg/dL (0.7-1.2) 12/23/21 14:58 GFR Calculation 120.9 mL/min (90-130) 12/23/21 14:58 Glucose 110 mg/dL (65-115) 12/23/21 14:58 Calculated Osmolality 282 mOsm/kg (285-295) L 12/23/21 14:58 Calcium 8.8 mg/dL (8.5-10.5) 12/23/21 14:58 Total Bilirubin 0.6 mg/dL (0.15-1.2) 12/23/21 14:58 AST 19 U/L (0-40) 12/23/21 14:58 ALT 29 U/L (0-41) 12/23/21 14:58 Alkaline Phosphatase 74 IU/L (40-130) 12/23/21 14:58 Total Protein 7.9 g/dL (6.6-8.7) 12/23/21 14:58 Albumin 4.2 g/dL (3.5-5.2) 12/23/21 14:58 Globulin 3.7 g/dL (1.3-4.6) 12/23/21 14:58 Lipase 26 U/L (13-60) 12/23/21 14:58 Urine Color Yellow (Yellow) 12/23/21 15:02 Urine Appearance Clear (CLEAR) 12/23/21 15:02 Urine pH 5 (5-7) 12/23/21 15:02 Ur Specific Maryneal 1.020 (1.005-1.030) 12/23/21 15:02 Urine Protein Neg (Negative) 12/23/21 15:02 Urine Glucose (UA) 4+ (Normal) H 12/23/21 15:02 Urine Ketones 1+ (Negative) H 12/23/21 15:02 Urine Blood Neg (Negative) 12/23/21 15:02 Urine Nitrate Negative (Negative) 12/23/21 15:02 Urine Bilirubin Neg (Negative) 12/23/21 15:02 Urine Urobilinogen Norm mg/dL (Negative) 12/23/21 15:02 Ur Leukocyte Esterase Negative (Negative) 12/23/21 15:02 Discharge Plan Discharge Patient Disposition: Home Clinical Impression: Diverticulitis Condition: Stable Prescriptions: New Cipro 500 mg tablet 500 mg PO BID Qty: 20 0RF metronidazole 500 mg tablet 500 mg PO BID 14 Days Qty: 28 0RF ondansetron HCl 4 mg tablet 4 mg PO Q6H PRN (Reason: nausea and vomiting) Qty: 20 0RF No Action Januvia 100 mg tablet 100 mg PO DAILY 0RF celecoxib [Celebrex] 200 mg capsule 200 mg PO DAILY Qty: 30 0RF naproxen-diphenhydramine 220-25 mg tablet PO 0RF gabapentin 600 mg tablet 600 mg PO TID 0RF glipizide 10 mg Tablet 10 mg PO BID 0RF aspirin 81 mg Tablet,Delayed Release (Dr/Ec) 81 mg PO DAILY 0RF ibuprofen 200 mg Tablet 800 mg PO PRN 0RF Hold Instructions: Do not take while taking celebrex. omeprazole 20 mg Capsule,Delayed Release(Dr/Ec) 20 mg PO DAILY 0RF albuterol sulfate [ProAir HFA] 90 mcg/actuation Hfa Aerosol Inhaler 2 puff INHALATION Q4H PRN (Reason: Shortness Of Breath) 0RF Rx Instructions: this medication was on the [facility] med list PT STATES HIS NEBULIZER STOPPED WORKING SO HE HASN'T USED THIS MEDICAITON. Discharge Orders: Discharge ED (Routine); Ordered 12/23/21 Ordered By: Baltazar Mock Referrals: Lisa Tolentino DO [Primary Care Provider] - Patient Instructions: Opioid Safety Activity Restrictions/Additional Instructions: Follow-up if not improving or worsens Coding Level of Care Code ED Seismograph Supervisor for Chg Fwd Exam Comprehensive
[2021-12-23 15:33] LABS: Add Urine Microscopic? NO; Charge for UA Resulting for Rev
[2021-12-23 15:40] LABS: Basophils % 0.2 %; Eosinophils % 0.3 %; Hematocrit 43.3 % (42.0-52.0); Hemoglobin 14.3 g/dL (11.7-16.6); Lymphocytes # 0.9 10^3/uL (0.8-4.8); Mean Corpuscular Hemoglobin 28.3 pg (28.0-34.0); Mean Corpuscular Volume 85.6 fl (80-94); Mean Platelet Volume 10.8 fL (7.4-10.4); Monocytes # 0.6 10^3/uL (0.2-0.9); Monocytes % 6.1 %; Neutrophils # 8.19 10^3/uL (1.8-7.7); Nucleated Red Blood Cells % 0 %; Platelet Count 242 10^3/cmm (130-400); Red Blood Count 5.06 10^6/uL (4.1-5.3); Red Cell Distribution Width 14.6 % (12.1-15.1); White Blood Count 9.8 10^3/uL (4.0-10.0)
[2021-12-23] MEDS: lactated ringers 1,000 ML 999 ML IV (15:49)
[2021-12-23] MEDS: ondansetron 2 mg/ML SDV 2 mL 4 MG IVP (15:49)
[2021-12-23 15:56] LABS: Bilirubin Urine Neg (Negative); Blood Urine Neg (Negative); Glucose Urine UA 4+ (Normal); Ketones Urine 1+ (Negative); Leukocyte Esterase Urine Negative (Negative); Nitrate Urine Negative (Negative); Protein Urine Neg (Negative); Urine Appearance Clear (CLEAR); Urine Color Yellow (Yellow); Urobilinogen Urine Norm (Negative); pH Urine 5 (5-7)
[2021-12-23 16:03] LABS: Alanine Aminotransferase 29 U/L (0-41); Albumin Level 4.2 g/dL (3.5-5.2); Alkaline Phosphatase 74 IU/L (40-130); Anion Gap 14.4 (5-19); Aspartate Amino Transferase 19 U/L (0-40); Blood Urea Nitrogen 12 mg/dL (6-20); Calcium 8.8 mg/dL (8.5-10.5); Carbon Dioxide 25 mmol/L (22-29); Chloride 100 mmol/L (98-107); Globulin 3.7 g/dL (1.3-4.6); Glomerular Filtration Rate 120.9 mL/min (90-130); Glucose 110 mg/dL (65-115); Lipase 26 U/L (13-60); Osmolality Calculated 282 mOsm/kg (285-295); Potassium 3.4 mmol/L (3.5-5.1); Sodium 136 mmol/L (136-145); Total Bilirubin 0.6 mg/dL (0.15-1.2); Total Protein 7.9 g/dL (6.6-8.7)
[2021-12-23 16:33] VITALS: BP 140/71; PULSE 81; RESP 16; O2SAT 94
== END 2021-12-23 16:35 | disposition home or self-care (01) ==
PROVIDERS: Emergency Medicine; Emergency Provider Family Medicine; PCP Family Medicine
DX: K57.92 Diverticulitis of intestine, part unspecified, without perforation or abscess without bleeding (principal); F17.200 Nicotine dependence, unspecified, uncomplicated; E11.9 Type 2 diabetes mellitus without complications; I10 Essential (primary) hypertension; E66.01 Morbid (severe) obesity due to excess calories; Z68.41 Body mass index [BMI] 40.0-44.9, adult; K21.9 Gastro-esophageal reflux disease without esophagitis
CPT/HCPCS: 80053; 81003; 83690; 85025; 96361; 96374; 99284; J2405

== ENCOUNTER 2021-12-25 22:18 | Emergency (ER) | payer MEDICAID, SELFPAY ==
[2021-12-25 22:30] VITALS: BP 135/84; PULSE 75; RESP 18; TEMP 37.1; O2SAT 95; BMI 40.0
[2021-12-25 22:52] VITALS: BP 137/78; PULSE 76; RESP 16; O2SAT 93
[2021-12-25 22:56] LABS: Basophils % 0.4 %; Eosinophils # 0.2 10^3/uL (0.0-0.8); Eosinophils % 3.1 %; Hematocrit 39.7 % (42.0-52.0); Hemoglobin 13.5 g/dL (11.7-16.6); Lymphocytes # 2.4 10^3/uL (0.8-4.8); Lymphocytes % 31.8 %; Mean Corpuscular Hemoglobin 28.7 pg (28.0-34.0); Mean Corpuscular Volume 84.5 fl (80-94); Mean Platelet Volume 10.5 fL (7.4-10.4); Monocytes # 0.7 10^3/uL (0.2-0.9); Monocytes % 9.3 %; Neutrophils # 4.14 10^3/uL (1.8-7.7); Neutrophils % 55.1 %; Nucleated Red Blood Cells % 0 %; Platelet Count 239 10^3/cmm (130-400); Red Cell Distribution Width 14.5 % (12.1-15.1); White Blood Count 7.5 10^3/uL (4.0-10.0)
--- NOTE | 2021-12-25 23:00 | W.ED.ABDPA2 ---
HPI - Abdominal Pain General: Chief Complaint: Abdominal Pain Stated Complaint: abdomen pain Time Seen by Provider: 12/25/21 22:20 Source: patient Mode of arrival: ambulatory Limitations: no limitations History of Present Illness: 46-year-old male who states he been having abdominal pain over the last 2 days seen here 2 days ago and diagnosed with likely diverticulitis on exam he has been on antibiotics he states that 2 days ago his pain was left lower quadrant but he started to have more pain in his right lower quadrant was concerned about appendicitis. States pain is sharp in nature rates today 5 out of 10 denies any diarrhea. Associated Symptoms: Denies chills, dysuria and fever(s) Review of Systems Const: Denies: fever(s), chills, body aches or change in appetite Eyes: Denies: blurry vision or eye discomfort ENMT: Denies: throat pain or dental pain Card: Denies: chest pain Resp: Denies: dyspnea GI: Reports: abdominal pain : Denies: dysuria Musc: Denies: neck pain or back pain Skin/Breast: Denies: rash Neuro: Denies: headache(s) Psych: Denies: depression Ovidio/Lymph: Denies: easy bruising All/Imm: Denies: urticaria PFSH ED PFSH: Medical History Asthma Diabetes mellitus GERD (gastroesophageal reflux disease) Hypertension Morbid obesity Psychiatric care Right tibial fracture Social History Smoking and tobacco status: current every day smoker Alcohol intake: current Alcohol intake frequency: few times a month Physical Exam Const: COMMON NORMALS: no acute distress, patient oriented x3 and healthy appearing HENMT: COMMON NORMALS: normocephalic and atraumatic HEAD & SCALP: normocephalic and atraumatic Eye: COMMON NORMALS: Equal, round and reactive pupils present and EOMs intact bilaterally PUPIL: Yes Equal, round and reactive pupils present Neck/C-Spine: COMMON NORMALS: full ROM and supple Chest: COMMONS NORMALS: normal inspection of the chest and normal palpation of entire chest wall Resp: COMMON NORMALS: normal respiratory effort, No retractions, No use of accessory muscles and clear to auscultation bilaterally AUSCULTATION: clear to auscultation bilaterally Cardio: COMMON NORMALS: regular rate, regular rhythm and No murmurs present (Cardio) RATE: regular rate RHYTHM: regular rhythm GI: COMMON NORMALS: Normal to inspection, nondistended, normoactive bowel sounds present, Soft to palpation, non-tender and no masses PALPATION: Yes Soft to palpation OTHER: Slight right lower quadrant tenderness Extremity: COMMON NORMALS: normal to inspection and full ROM Neuro: COMMON NORMALS: patient oriented x3, moves all extremities and no focal motor deficits Psych: COMMON NORMALS: mental status grossly normal, Normal thought process present and cooperative THOUGHT PROCESS: Normal thought process present Skin: COMMON NORMALS: no rashes or lesions noted and no wounds GENERAL SKIN EXAM: no rashes or lesions noted Course Vital Signs: Vital signs: Vital Signs Temperature 98.7 F 12/25/21 22:30 Pulse Rate 95 12/26/21 00:03 Respiratory Rate 16 12/26/21 00:03 Blood Pressure 128/86 12/26/21 00:03 Pulse Oximetry 96 12/26/21 00:03 MDM - Abdominal Pain Medical Decision Making Patient presents with abdominal pain CT shows a kidney stone no findings of appendicitis blood work here is all normal we will prescribe him pain meds for home he is to follow-up with urology he is return if worsening he understands agrees to plan. Lab Data : 12/25/21 22:43 12/25/21 22:43 Labs/Radiology: Radiology Impressions Abdomen/Pelvis CT 12/25/21 23:02 IMPRESSION: 1. Nonobstructing right kidney stone. 2. Small stone mid left ureter without signs of obstruction Laboratory Results WBC 7.5 10^3/uL (4.0-10.0) 12/25/21 22:43 RBC 4.70 10^6/uL (4.1-5.3) 12/25/21 22:43 Hgb 13.5 g/dL (11.7-16.6) 12/25/21 22:43 Hct 39.7 % (42.0-52.0) L 12/25/21 22:43 MCV 84.5 fl (80-94) 12/25/21 22:43 MCH 28.7 pg (28.0-34.0) 12/25/21 22:43 MCHC 34.0 g/dL (30.0-36.0) 05/09/22 22:43 RDW 14.5 % (12.1-15.1) 12/25/21 22:43 Plt Count 239 10^3/cmm (130-400) 12/25/21 22:43 MPV 10.5 fL (7.4-10.4) H 12/25/21 22:43 Neut % (Auto) 55.1 % 12/25/21 22:43 Lymph % (Auto) 31.8 % 12/25/21 22:43 [place] % (Auto) 9.3 % 12/25/21 22:43 Eos % (Auto) 3.1 % 12/25/21 22:43 Baso % (Auto) 0.4 % 12/25/21: Neut # (Auto) 4.14 10^3/uL (1.8-7.7) 12/25/21 22: Lymph # (Auto) 2.4 10^3/uL (0.8-4.8) 12/25/21 22:43 [place] # (Auto) 0.7 10^3/uL (0.2-0.9) 12/25/21 22:43 Eos # (Auto) 0.2 10^3/uL (0.0-0.8) 12/25/21:43 Baso # (Auto) 0.0 10^3/uL (0.0-0.1) 12/25/21: Nucleated RBC % (auto) 0 % 12/25/21: Nucleated RBCs # 0.0 /100WBC 12/25/21 22:43 Sodium 139 mmol/L (136-145) 12/25/21 22:43 Potassium 3.5 mmol/L (3.5-5.1) 12/25/21 22:43 Chloride 102 mmol/L (98-107) 12/25/21 22:43 Carbon Dioxide 27 mmol/L (22-29) 12/25/21 22:43 Anion Gap 13.5 (5-19) 12/25/21 22:43 BUN 14 mg/dL (6-20) 12/25/21 22:43 Creatinine 0.8 mg/dL (0.7-1.2) 12/25/21 22:43 GFR Calculation 103.6 mL/min (90-130) 05/09/22 22:43 Glucose 110 mg/dL (65-115) 12/25/21 22:43 Calculated Osmolality 289 mOsm/kg (285-295) 12/25/21 22:43 Lactate 0.9 mmol/L (0.5-2.2) 12/25/21 22:43 Calcium 9.4 mg/dL (8.5-10.5) 12/25/21 22:43 Total Bilirubin 0.2 mg/dL (0.15-1.2) 12/25/21 22:43 AST 20 U/L (0-40) 12/25/21 22:43 ALT 39 U/L (0-41) 12/25/21 22:43 Alkaline Phosphatase 61 IU/L (40-130) 12/25/21 22:43 Total Protein 7.5 g/dL (6.6-8.7) 12/25/21 22:43 Albumin 4.2 g/dL (3.5-5.2) 12/25/21 22:43 Globulin 3.3 g/dL (1.3-4.6) 12/25/21 22:43 Lipase 26 U/L (13-60) 12/25/21 22:43 Discharge Plan Discharge Patient Disposition: Home Clinical Impression: Kidney stone Condition: Stable Prescriptions: New hydrocodone-acetaminophen 5-325 mg tablet 1 tab PO Q6H PRN (Reason: pain) Qty: 14 0RF ondansetron 4 mg tablet,disintegrating 4 mg PO Q6H PRN (Reason: nausea and vomiting) Qty: 14 0RF Flomax 0.4 mg capsule 0.4 mg PO DAILY Qty: 4 0RF No Action Januvia 100 mg tablet 100 mg PO DAILY 0RF celecoxib [Celebrex] 200 mg capsule 200 mg PO DAILY Qty: 30 0RF naproxen-diphenhydramine 220-25 mg tablet PO 0RF gabapentin 600 mg tablet 600 mg PO TID 0RF glipizide 10 mg Tablet 10 mg PO BID 0RF aspirin 81 mg Tablet,Delayed Release (Dr/Ec) 81 mg PO DAILY 0RF ibuprofen 200 mg Tablet 800 mg PO PRN 0RF Hold Instructions: Do not take while taking celebrex. omeprazole 20 mg Capsule,Delayed Release(Dr/Ec) 20 mg PO DAILY 0RF albuterol sulfate [ProAir HFA] 90 mcg/actuation Hfa Aerosol Inhaler 2 puff INHALATION Q4H PRN (Reason: Shortness Of Breath) 0RF Rx Instructions: this medication was on the [facility] med list PT STATES HIS NEBULIZER STOPPED WORKING SO HE HASN'T USED THIS MEDICAITON. Cipro 500 mg tablet 500 mg PO BID Qty: 20 0RF metronidazole 500 mg tablet 500 mg PO BID 14 Days Qty: 28 0RF ondansetron HCl 4 mg tablet 4 mg PO Q6H PRN (Reason: nausea and vomiting) Qty: 20 0RF Discharge Orders: Discharge ED (Routine); Ordered 12/26/21 Ordered By: Julia Rodriguez Referrals: Sarthak Hendricks MD [Physician] - 1-3 days Lisa Tolentino DO [Primary Care Provider] - Discharge Diet: Advance as tolerated Discharge Activity: Resume usual activity Patient Instructions: Kidney Stones (ED), Opioid Safety Coding Level of Care Code ED Project Planner for Chg Fwd Exam Comprehensive
--- NOTE | 2021-12-25 23:02 | CTR_ITS ---
PROCEDURE INFORMATION: Exam: CT Abdomen And Pelvis Without Contrast Exam date and time: 12/25/2021 11:16 PM Age: 46 years old Clinical indication: Abdominal pain; Localized; Right; Additional info: Abd pain TECHNIQUE: Imaging protocol: Computed tomography of the abdomen and pelvis without contrast. Radiation optimization: All CT scans at this facility use at least one of these dose optimization techniques: automated exposure control; mA and/or kV adjustment per patient size (includes targeted exams where dose is matched to clinical indication); or iterative reconstruction. COMPARISON: CR XR chest 1V portable [id number] 05/04/2020 6:37 PM RADIATION DOSE METRICS: Total DLP (mGy-cm): 1435.16 FINDINGS: Limitations: The absence of intravenous contrast lessens the sensitivity of this study for solid organ abnormalities. Liver: There is no focal abnormality within the liver. Gallbladder and bile ducts: The gallbladder is normal. Pancreas: The pancreas is normal. Spleen: The spleen is normal. Adrenal glands: The adrenal glands are normal. Kidneys and ureters: There is a right renal collecting system calcification. The left kidney is normal. There is no evidence of hydronephrosis. There is focal calcification in the mid left ureter measuring approximately 2 mm. Density measures approximately 280 Hounsfield units. Stone is not seen on the blower operator image. Stomach and bowel: There is no evidence of colitis/diverticulitis. There is no evidence of intestinal obstruction. Appendix: A normal appendix is identified. Intraperitoneal space: There is no evidence of free intraperitoneal fluid. Vasculature: Unremarkable. No abdominal aortic aneurysm. Lymph nodes: Unremarkable. No enlarged lymph nodes. Urinary bladder: Unremarkable as visualized. Reproductive: Unremarkable as visualized. Bones/joints: Unremarkable. No acute fracture. Soft tissues: Unremarkable. CT/CT abdomen pelvis wo con [id number] IMPRESSION: 1. Nonobstructing right kidney stone. 2. Small stone mid left ureter without signs of obstruction
[2021-12-25 23:13] LABS: Lactate (Lactic Acid level) 0.9 mmol/L (0.5-2.2)
[2021-12-25 23:14] LABS: Alanine Aminotransferase 39 U/L (0-41); Albumin Level 4.2 g/dL (3.5-5.2); Alkaline Phosphatase 61 IU/L (40-130); Anion Gap 13.5 (5-19); Aspartate Amino Transferase 20 U/L (0-40); Blood Urea Nitrogen 14 mg/dL (6-20); Calcium 9.4 mg/dL (8.5-10.5); Carbon Dioxide 27 mmol/L (22-29); Chloride 102 mmol/L (98-107); Globulin 3.3 g/dL (1.3-4.6); Glomerular Filtration Rate 103.6 mL/min (90-130); Glucose 110 mg/dL (65-115); Lipase 26 U/L (13-60); Osmolality Calculated 289 mOsm/kg (285-295); Potassium 3.5 mmol/L (3.5-5.1); Sodium 139 mmol/L (136-145); Total Bilirubin 0.2 mg/dL (0.15-1.2); Total Protein 7.5 g/dL (6.6-8.7)
[2021-12-26 00:03] VITALS: BP 128/86; PULSE 95; RESP 16; O2SAT 96
[2021-12-26 01:01] VITALS: BP 119/72; PULSE 73; RESP 16; O2SAT 95
--- NOTE | 2021-12-26 11:47 | DCPLANNER ---
Addendum entered by Nasima Gaines 01/05/22 08:25: Patient had a follow up appointment scheduled for 01.02.22 with urology - patient did attend appointment. Addendum entered by Nasima Gaines 12/28/21 18:43: Patient has a follow up appointment scheduled for Sunday, January 02, 2022 at 10:[address] Hendricks at urology. Clinic will call patient with appointment information. Original Note: performance manager had message to schedule a follow up appointment for patient with urology. performance manager sent patients information to the front office staff at urology. Patients information will be printed and reviewed. Clinic will call patient with appointment information.
== END 2021-12-26 01:04 | disposition home or self-care (01) ==
PROVIDERS: Emergency Provider Emergency Medicine; PCP Family Medicine
DX: N20.0 Calculus of kidney (principal); F17.200 Nicotine dependence, unspecified, uncomplicated; Z79.84 Long term (current) use of oral hypoglycemic drugs; Z79.82 Long term (current) use of aspirin; Z79.51 Long term (current) use of inhaled steroids
CPT/HCPCS: 74176; 80053; 83605; 83690; 85025; 99283

== ENCOUNTER 2022-01-02 08:30 | Outpatient (CLI) | payer MEDICAID, SELFPAY ==
--- NOTE | 2022-01-02 08:49 | XRR_ITS ---
PROCEDURE INFORMATION: Exam: XR Abdomen Exam date and time: 01/02/2022 8:51 AM Age: 46 years old Clinical indication: Condition or disease; Other: Stones; Additional info: Stones, sean way 01/02/22 @ 9:00 am appt to follow TECHNIQUE: Imaging protocol: XR of the abdomen. Views: Frontal supine view of the abdomen. 1 View. COMPARISON: CT abdomen pelvis con [id number] 12/25/2021 11:16 PM FINDINGS: Gastrointestinal tract: [id number] constipation without bowel dilation to indicate obstruction. Vasculature: Right pelvic calcified phlebolith. Bones/joints: Unremarkable. XR/XR KUB [id number] IMPRESSION: 1. Soja-hi-lguvufsk constipation without bowel dilation to indicate obstruction. 2. Right pelvic calcified phlebolith.
== END 2022-01-02 08:31 | disposition home or self-care (01) ==
LOC: RAD 08:33
PROVIDERS: PCP Family Medicine; Visit Provider Urology
DX: N20.0 Calculus of kidney (principal); N20.1 Calculus of ureter; Z98.890 Other specified postprocedural states
CPT/HCPCS: 74018; 99203

== ENCOUNTER 2022-01-26 07:10 | Outpatient (CLI) | payer MEDICAID, SELFPAY ==
--- NOTE | 2022-01-26 07:15 | XR_ITS ---
WS: [id number] Exam: XR KUB [id number] Date/Time of Exam: 01/26/2022 7:15 AM Reason For Exam: LEFT URETERAL CALCULUS Comparison 01/02/2022. No bowel obstruction or free air. 3 mm right pelvic calcification which is nonspecific. This is uncha nged in location. No sign of organ enlargement. Moderate stool retention throughout the colon. Mild l evoscoliosis of the lumbar spine. XR/XR KUB [id number] IMPRESSION: 1. No acute abdominal finding. Other minor findings as above.
== END 2022-01-26 07:11 | disposition home or self-care (01) ==
PROVIDERS: PCP Family Medicine; Visit Provider Urology
DX: N20.1 Calculus of ureter (principal)
CPT/HCPCS: 74018; 81003; 99213

== ENCOUNTER 2022-01-27 15:24 | Emergency (ER) | payer MEDICAID, SELFPAY ==
[2022-01-27 15:27] VITALS: BP 123/75; PULSE 86; RESP 20; TEMP 36.2; O2SAT 96; BMI 39.0
--- NOTE | 2022-01-27 15:40 | CTR_ITS ---
PROCEDURE INFORMATION: Exam: CT Abdomen And Pelvis Without Contrast Exam date and time: 01/27/2022 4:05 PM Age: 46 years old Clinical indication: Abdominal tenderness; Abdominal pain; Generalized; Patient HX: Diarrhea for several days; Additional info: Left sided abd pain TECHNIQUE: Imaging protocol: Computed tomography of the abdomen and pelvis without contrast. Radiation optimization: All CT scans at this facility use at least one of these dose optimization techniques: automated exposure control; mA and/or kV adjustment per patient size (includes targeted exams where dose is matched to clinical indication); or iterative reconstruction. COMPARISON: CT abdomen pelvis con [id number] 12/25/2021 11:16 PM RADIATION DOSE METRICS: Total DLP (mGy-cm): FINDINGS: Liver: Normal. No mass. Gallbladder and bile ducts: Normal. No calcified stones. No ductal dilation. Pancreas: Normal. No ductal dilation. Spleen: Normal. No splenomegaly. Adrenal glands: Normal. No mass. Kidneys and ureters: Punctate nonobstructing stone in the right kidney series 2, image 37. No hydronephrosis. Stomach and bowel: Unremarkable. No obstruction. No mucosal thickening. Appendix: No evidence of appendicitis. Intraperitoneal space: Unremarkable. No free air. No significant fluid collection. Vasculature: Unremarkable. No abdominal aortic aneurysm. Lymph nodes: Unremarkable. No enlarged lymph nodes. Urinary bladder: Unremarkable as visualized. Reproductive: Unremarkable as visualized. Bones/joints: No acute fracture. Soft tissues: Unremarkable. CT/CT abdomen pelvis con [id number] IMPRESSION: No acute findings. Punctate nonobstructing stone in the right kidney.
--- NOTE | 2022-01-27 15:40 | CTR_ITS ---
PROCEDURE INFORMATION: Exam: CT Head Without Contrast Exam date and time: 01/27/2022 4:02 PM Age: 46 years old Clinical indication: Dizziness and syncope and collapse; Additional info: Head trauma TECHNIQUE: Imaging protocol: Computed tomography of the head without contrast. Radiation optimization: All CT scans at this facility use at least one of these dose optimization techniques: automated exposure control; mA and/or kV adjustment per patient size (includes targeted exams where dose is matched to clinical indication); or iterative reconstruction. COMPARISON: No relevant prior studies available. RADIATION DOSE METRICS: Total DLP (mGy-cm): 851.68 FINDINGS: Brain: Normal. No hemorrhage. Unremarkable white matter. No mass effect. Cerebral ventricles: No ventriculomegaly. Paranasal sinuses: Visualized sinuses are unremarkable. No fluid levels. Mastoid air cells: Visualized mastoid air cells are well aerated. Bones/joints: Unremarkable. No acute fracture. Soft tissues: Unremarkable. CT/CT head wo con* [id number] IMPRESSION: No acute intracranial abnormality.
--- NOTE | 2022-01-27 15:42 | W.ED.SYNCOPE ---
HPI - Syncope General: Chief Complaint: Abdominal Pain Stated Complaint: ABD Time Seen by Provider: 01/27/22 15:29 Source: patient and EMS Mode of arrival: EMS Limitations: no limitations History of Present Illness: This patient was transported by EMS to the emergency department. He apparently felt his normal state of health this morning when he went to work and then ate lunch and then shortly after lunch developed some significant left-sided abdominal pain and then followed by multiple loose stools. Patient states he could not get off the stool for approximately 30 minutes he continued to have low brown watery stools. Still has some crampy left-sided abdominal pain. He states he felt weak all over but did not have any palpitations chest pain etc. He then told his boss he had to go home and proceeded to get in the car to drive home but still felt weak. He then drove up. At time and had to stop to go to the bathroom again. He went to a can of the convenience store went stopped in the bathroom and had multiple loose stools at that time again all brown and watery with no blood. He felt weak all over and had cramps in his legs from sitting on stool. He then attempted to get up and apparently passed out. He states he did hit his head but he does not know how hard he hit it. He then eventually was able to get up and call his who called EMS. Prior to arrival he was assessed and noted to be awake alert with vital signs noted per ambulance report he was started on IV fluids. He states he feels a bit better now. He still has some left-sided abdominal pain which is improved. He does relate that his has been sick over the past several days with some GI illnesses as well. He states the food he ate this this morning was cooked from home and there was no question about it source and low potential for foodborne illness. He again denies any headache focal weakness, palpitations chest pain etc. MD complaint: loss of consciousness Prodromal symptoms: lightheaded Associated symptoms: Reports abdominal pain and lightheadedness; Deny chest pain, fever(s), headache(s), nausea or vertigo Review of Systems Const: Denies: fever(s) or chills Eyes: Reports: blurry vision ENMT: Denies: odynophagia or nasal congestion Card: Reports: lightheadedness and syncope; Denies: chest pain, palpitations, irregular heart rhythm or dyspnea on exertion Resp: Denies: dyspnea, productive cough or non-productive cough GI: Reports: abdominal pain and diarrhea; Denies: nausea, vomiting or hematochezia : Denies: flank pain, difficulty urinating or dysuria Musc: Denies: neck pain, back pain, extremity pain or extremity swelling Skin/Breast: Denies: rash Neuro: Denies: headache(s), numbness in extremities, weakness in extremities, vertigo or seizure-like activity Psych: Denies: anxiety or depression Endo: Denies: polyuria or polydipsia Ovidio/Lymph: Denies: easy bruising or easy bleeding PFSH ED PFSH: Medical History Asthma Diabetes mellitus GERD (gastroesophageal reflux disease) Hypertension Morbid obesity Psychiatric care Right tibial fracture Family History Mother Diabetes Father No problems noted. Social History Smoking and tobacco status: never smoked Alcohol intake: never Marital status: Current occupational status: employed History of recent travel: No Physical Exam Narrative: EXAM NARRATIVE: The patient is alert. He is goal-directed in his speech. Const: COMMON NORMALS: no acute distress and patient oriented x3 GENERAL APPEARANCE: cooperative NUTRITIONAL APPEARANCE: overweight HENMT: COMMON NORMALS: normocephalic, atraumatic (No ecchymosis, laceration, step-off), Normal nasal mucous membranes and turbinates present and moist oral mucous membranes HEAD & SCALP: normocephalic and atraumatic (No ecchymosis, laceration, step-off) FACE & SINUS: normal facial exam and face symmetric NOSE: Normal nasal mucous membranes and turbinates present Eye: COMMON NORMALS: Equal, round and reactive pupils present, EOMs intact bilaterally and conjunctivae normal CONJUNCTIVA: Yes conjunctivae normal PUPIL: Yes Equal, round and reactive pupils present Neck/C-Spine: COMMON NORMALS: full ROM CERVICAL SPINE: Yes cervical ROM normal, No Cervical spine tenderness, No step off deformity, No Paracervical muscle tenderness, No Paracervical spasm and No Trapezius muscle tenderness Chest: COMMONS NORMALS: normal inspection of the chest and normal palpation of entire chest wall Resp: COMMON NORMALS: normal respiratory effort, No retractions, No use of accessory muscles and clear to auscultation bilaterally AUSCULTATION: clear to auscultation bilaterally Cardio: COMMON NORMALS: regular rate, regular rhythm, No murmurs present (Cardio) and Peripheral pulses 2+ throughout RATE: regular rate RHYTHM: regular rhythm PERIPHERAL PULSES: Peripheral pulses 2+ throughout GI: COMMON NORMALS: Soft to palpation, no masses and no bruits INSPECTION: Yes central obesity PALPATION: Yes Soft to palpation, Yes Tenderness to palpation present (GI) Details: LLQ and LUQ, No Guarding due to palpation present (GI) and No Rigid due to palpation : COMMON NORMALS: Yes no CVA tenderness BLADDER/KIDNEY EXAM: Yes no CVA tenderness Back/Pelvis: COMMON NORMALS: no CVA tenderness, thoracic and lumbar spine normal to inspection, no thoracic nor lumbar tenderness and thoraco-lumbar ROM normal Extremity: COMMON NORMALS: normal to inspection, full ROM, capillary refill normal, no calf tenderness and no pedal edema Neuro: COMMON NORMALS: patient oriented x3, moves all extremities, no focal motor deficits and no sensory deficits noted Psych: COMMON NORMALS: mental status grossly normal Skin: COMMON NORMALS: no rashes or lesions noted, turgor normal and no jaundice GENERAL SKIN EXAM: no rashes or lesions noted and turgor normal Course Reevaluation(s): Reevaluation #1: The patient is doing well. He has not had any loose stools since arrival to the emergency department. He is drinking fluids without any difficulty and feels markedly better. Repeat examination reveals no abdominal tenderness he remains alert and no other focal findings at this time. Ancillary studies are reassuring. Does have a slight leukocytosis but that is nonspecific and certainly consistent with his presentation. He is afebrile his imaging studies are reassuring. I think likely he is conditions likely as result of probable viral illness which similarly affected his just prior to his symptoms. We discussed expected course and return precautions. Stable for discharge. Time: 18:06 Vital Signs: Vital signs: Vital Signs Temperature 97.1 F L 01/27/22 15:27 Pulse Rate 86 01/27/22 15:27 Respiratory Rate 20 H 01/27/22 15:27 Blood Pressure 123/75 01/27/22 15:27 Pulse Oximetry 96 01/27/22 15:27 MDM - Syncope Medical Decision Making Patient with syncopal episode likely due to multiple episodes of diarrhea and volume depletion and vasovagal effects. His work-up in the emergency department are reassuring without any evidence of intra-abdominal process or head injury as result of his syncope. He remained in sinus rhythm and was in sinus rhythm throughout his emergency department stay without any ectopy or arrhythmia etc. Was taking fluids and had no other ongoing symptoms. Stable for discharge. Medical Records I reviewed the patient's medical records. Lab Data I reviewed the patient's lab results. : 01/27/22 15:55 01/27/22 15:55 Radiology Impressions Abdomen/Pelvis CT 01/27/22 15:40 IMPRESSION: No acute findings. Punctate nonobstructing stone in the right kidney. Head CT 01/27/22 15:40 IMPRESSION: No acute intracranial abnormality. Laboratory Results WBC 17.2 10^3/uL (4.0-10.0) H 01/27/22 15:55 RBC 4.76 10^6/uL (4.1-5.3) 01/27/22 15:55 Hgb 13.5 g/dL (11.7-16.6) 01/27/22 15:55 Hct 40.8 % (42.0-52.0) L 01/27/22 15:55 MCV 85.7 fl (80-94) 01/27/22 15:55 MCH 28.4 pg (28.0-34.0) 01/27/22 15:55 MCHC 33.1 g/dL (30.0-36.0) 01/27/22 15:55 RDW 14.5 % (12.1-15.1) 01/27/22 15:55 Plt Count 193 10^3/cmm (130-400) 01/27/22 15:55 MPV 10.5 fL (7.4-10.4) H 01/27/22 15:55 Neut % (Auto) 89.8 % 01/27/22 15:55 Lymph % (Auto) 2.5 % 01/27/22 15:55 Barry % (Auto) 6.9 % 01/27/22 15:55 Eos % (Auto) 0.2 % 01/27/22 15:55 Baso % (Auto) 0.2 % 01/27/22 15:55 Neut # (Auto) 15.43 10^3/uL (1.8-7.7) H 01/27/22 15:55 Lymph # (Auto) 0.4 10^3/uL (0.8-4.8) L 01/27/22 15:55 Barry # (Auto) 1.2 10^3/uL (0.2-0.9) H 01/27/22 15:55 Eos # (Auto) 0.0 10^3/uL (0.0-0.8) 01/27/22 15:55 Baso # (Auto) 0.0 10^3/uL (0.0-0.1) 01/27/22 15:55 Nucleated RBC % (auto) 0 % 01/27/22 15:55 Nucleated RBCs # 0.0 /100WBC 01/27/22 15:55 Sodium 139 mmol/L (136-145) 01/27/22 15:55 Potassium 4.3 mmol/L (3.5-5.1) 01/27/22 15:55 Chloride 102 mmol/L (98-107) 01/27/22 15:55 Carbon Dioxide 26 mmol/L (22-29) 01/27/22 15:55 Anion Gap 15.3 (5-19) 01/27/22 15:55 BUN 19 mg/dL (6-20) 01/27/22 15:55 Creatinine 1.3 mg/dL (0.7-1.2) H 01/27/22 15:55 GFR Calculation 59.2 mL/min (90-130) L 01/27/22 15:55 Glucose 260 mg/dL (65-115) H 01/27/22 15:55 Calculated Osmolality 299 mOsm/kg (285-295) H 01/27/22 15:55 Calcium 9.0 mg/dL (8.5-10.5) 01/27/22 15:55 Total Bilirubin 0.5 mg/dL (0.15-1.2) 01/27/22 15:55 AST 17 U/L (0-40) 01/27/22 15:55 ALT 30 U/L (0-41) 01/27/22 15:55 Alkaline Phosphatase 67 IU/L (40-130) 01/27/22 15:55 Total Protein 7.1 g/dL (6.6-8.7) 01/27/22 15:55 Albumin 4.1 g/dL (3.5-5.2) 01/27/22 15:55 Globulin 3.0 g/dL (1.3-4.6) 01/27/22 15:55 Discharge Plan Discharge Patient Disposition: Home Clinical Impression: Syncope, Diarrhea Condition: Stable Prescriptions: No Action Januvia 100 mg tablet 100 mg PO DAILY 0RF celecoxib [Celebrex] 200 mg capsule 200 mg PO DAILY Qty: 30 0RF naproxen-diphenhydramine 220-25 mg tablet PO 0RF gabapentin 600 mg tablet 600 mg PO TID 0RF Victoza 2-Tho 0.6 mg/0.1 mL (18 mg/3 mL) pen injector 1.8 mg SUBCUT DAILY 0RF Farxiga 5 mg tablet 5 mg PO DAILY 0RF apple cider vinegar 600 mg capsule PO 0RF Flomax 0.4 mg capsule 0.4 mg PO DAILY Qty: 30 1RF glipizide 10 mg Tablet 10 mg PO BID 0RF aspirin 81 mg Tablet,Delayed Release (Dr/Ec) 81 mg PO DAILY 0RF ibuprofen 200 mg Tablet 800 mg PO PRN 0RF Hold Instructions: Do not take while taking celebrex. omeprazole 20 mg Capsule,Delayed Release(Dr/Ec) 20 mg PO DAILY 0RF albuterol sulfate [ProAir HFA] 90 mcg/actuation Hfa Aerosol Inhaler 2 puff INHALATION Q4H PRN (Reason: Shortness Of Breath) 0RF Rx Instructions: this medication was on the [facility] med list PT STATES HIS NEBULIZER STOPPED WORKING SO HE HASN'T USED THIS MEDICAITON. Cipro 500 mg tablet 500 mg PO BID Qty: 20 0RF ondansetron HCl 4 mg tablet 4 mg PO Q6H PRN (Reason: nausea and vomiting) Qty: 20 0RF hydrocodone-acetaminophen 5-325 mg tablet 1 tab PO Q6H PRN (Reason: pain) Qty: 14 0RF ondansetron 4 mg tablet,disintegrating 4 mg PO Q6H PRN (Reason: nausea and vomiting) Qty: 14 0RF Discharge Orders: Discharge ED (Routine); Ordered 01/27/22 Ordered By: Johnson Perez Referrals: Jose Raul Young [Referring] - Discharge Diet: Advance as tolerated Discharge Activity: Resume usual activity Patient Instructions: Syncope (ED), Opioid Safety Activity Restrictions/Additional Instructions: Continue to drink fluids today as well as advance to regular diet as soon as possible. If you develop any new worsening or persistent symptoms return to this or the nearest emergency department. 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
[2022-01-27] MEDS: lactated ringers 1,000 ML 999 ML IV (15:56)
[2022-01-27 15:59] LABS: Basophils % 0.2 %; Eosinophils % 0.2 %; Hematocrit 40.8 % (42.0-52.0); Hemoglobin 13.5 g/dL (11.7-16.6); Lymphocytes # 0.4 10^3/uL (0.8-4.8); Lymphocytes % 2.5 %; Mean Corpuscular HGB Conc 33.1 g/dL (30.0-36.0); Mean Corpuscular Hemoglobin 28.4 pg (28.0-34.0); Mean Corpuscular Volume 85.7 fl (80-94); Mean Platelet Volume 10.5 fL (7.4-10.4); Monocytes # 1.2 10^3/uL (0.2-0.9); Monocytes % 6.9 %; Neutrophils # 15.43 10^3/uL (1.8-7.7); Neutrophils % 89.8 %; Nucleated Red Blood Cells % 0 %; Platelet Count 193 10^3/cmm (130-400); Red Blood Count 4.76 10^6/uL (4.1-5.3); Red Cell Distribution Width 14.5 % (12.1-15.1); White Blood Count 17.2 10^3/uL (4.0-10.0)
[2022-01-27 16:16] LABS: Alanine Aminotransferase 30 U/L (0-41); Albumin Level 4.1 g/dL (3.5-5.2); Alkaline Phosphatase 67 IU/L (40-130); Anion Gap 15.3 (5-19); Aspartate Amino Transferase 17 U/L (0-40); Blood Urea Nitrogen 19 mg/dL (6-20); Carbon Dioxide 26 mmol/L (22-29); Chloride 102 mmol/L (98-107); Glomerular Filtration Rate 59.2 mL/min (90-130); Glucose 260 mg/dL (65-115); Osmolality Calculated 299 mOsm/kg (285-295); Potassium 4.3 mmol/L (3.5-5.1); Sodium 139 mmol/L (136-145); Total Bilirubin 0.5 mg/dL (0.15-1.2); Total Protein 7.1 g/dL (6.6-8.7)
--- NOTE | 2022-01-27 18:07 | PC.NURSE ---
Pt sent with wrong discharge paperwork. Pt contacted and notified by this RN. D/C instructions given verbally over the phone, pt sts he will dispose of the paperwork he received.
[2022-01-27 18:13] VITALS: BP 159/87; PULSE 95; RESP 18; O2SAT 96
== END 2022-01-27 18:14 | disposition home or self-care (01) ==
PROVIDERS: Emergency Provider Emergency Medicine; PCP Family Medicine
DX: R55 Syncope and collapse (principal); R19.7 Diarrhea, unspecified
CPT/HCPCS: 70450; 74176; 80053; 85025; 96360; 99284

== ENCOUNTER 2022-02-09 09:59 | Outpatient (CLI) | payer MEDICAID, SELFPAY ==
--- NOTE | 2022-02-09 10:00 | CT_ITS ---
WS: [id number] CT ABDOMEN AND PELVIS NONCONTRAST HISTORY: LEFT URETERAL CALCULUS TECHNIQUE: Imaging performed through the abdomen and pelvis. Coronal and sagittal reformats are submi tted. All CT scans at [facility] use at least one of these dose optimization techniques: auto mated exposure control; mA and/or kV adjustment per patient size (includes targeted exams where dose is matched to clinical indication); or iterative reconstruction. DLP: 1350.91 mGy.cm COMPARISON: 01/27/2022 Lower thorax: Lung bases are clear. Visualized heart is normal. No hiatal hernia. Liver: Mild hepatic steatosis. No mass or bile duct dilatation. Gallbladder: Normal gallbladder. Pancreas: Normal size and attenuation. Normal pancreatic duct. No pancreatitis or mass. Spleen: Normal. Adrenal glands: Normal. No mass. Right kidney: Nonobstructing 5 mm calcification upper pole RIGHT kidney. No ureteral obstruction. Left kidney: Mild perinephric stranding. No renal calcification or obstruction. 5 mm calcification th e distal LEFT ureter. This calcification has migrated inferiorly by approximately 4 cm as compared to the prior study of 01/27/2022. This calcification is not causing a significant obstruction. Very clos e to being expelled into the urinary bladder. Aorta: Normal abdominal aorta, no aneurysm or atherosclerosis. No free fluid, intraperitoneal air or significant lymphadenopathy. GI tract: Normally distended stomach. No small bowel obstruction. Diffuse fecal retention and constip ation. The appendix is normal. Abdominal wall: Small umbilical hernia contains fat only. Pelvis: Well-distended urinary bladder. No free fluid in the bladder. LEFT inguinal canal is patent c ontaining fat only. Osseous structures: Degenerative disc disease at L5-S1. CT/CT kidney stone [id number] IMPRESSION: 1. Distal LEFT ureteral calcification measures 5 mm. Calcification has migrate d inferiorly by 4 cm since 01/27/2022. 2. Distal LEFT ureteral calcification is not causing a significant obstruction . 3. Nonobstructing 5 mm calcification RIGHT kidney.
== END 2022-02-09 10:00 | disposition home or self-care (01) ==
LOC: RAD 10:01
PROVIDERS: PCP Family Medicine; Visit Provider Urology
DX: N20.1 Calculus of ureter (principal)
CPT/HCPCS: 74176; 81003; 99213

== ENCOUNTER 2022-02-22 07:36 | Outpatient (CLI) | payer MEDICAID, SELFPAY | END 2022-02-22 07:37 | disposition home or self-care (01) | PROVIDERS: PCP Family Medicine; Visit Provider Urology | DX: N20.1 Calculus of ureter (principal) | CPT/HCPCS: 74018; 81003; 99213 ==

== ENCOUNTER → 2022-03-02 15:15 | Outpatient (BNVA) | payer MEDICAID, SELFPAY | PROVIDERS: PCP Family Medicine; Visit Provider Urology | DX: N20.1 Calculus of ureter (principal) | CPT/HCPCS: 82365; 88300 ==

== ENCOUNTER 2022-03-08 09:02 | Outpatient (CLI) | payer MEDICAID, SELFPAY ==
--- NOTE | 2022-03-08 09:00 | XR_ITS ---
WS: [id number] XR KUB [id number] REASON FOR EXAM: LEFT URETERAL CALCULUS FINDINGS: No calculi overlying the kidneys is identified. (CT scan 01/27/2022 and 02/09/2022 demonstrated small c alculus in the right kidney. The 2 CT scans above demonstrated a left ureteral calculus initially just below the level of the left sacroiliac joint and then at the level of the ureterovesical junction. No urinary tract calculi aren't readily identifiable on the previous exam of 01/26/2022. On 02/22/2022 there is a faint calcification in the right pelvis not seen on the previous abdomen exami nations. Currently there is a faint calcification in the right pelvis compatible with distal right ureteral ca lculus. Somewhat equivocal finding. Small vague density in the left pelvis not previously identified which could represent distal left ur eteral calculus.. Equivocal finding. XR/XR KUB [id number] IMPRESSION: Vague pelvic findings with potential for representing distal right and left ure teral calculi as above.
== END 2022-03-08 09:03 | disposition home or self-care (01) ==
PROVIDERS: PCP Family Medicine; Visit Provider Urology
DX: N20.1 Calculus of ureter (principal); N20.0 Calculus of kidney
CPT/HCPCS: 74018; 81003; 99213

== ENCOUNTER 2022-03-17 15:09 | Emergency (ER) | payer MEDICAID, SELFPAY ==
[2022-03-17 15:20] VITALS: BP 135/67; PULSE 84; RESP 16; TEMP 36.3; O2SAT 98; BMI 38.6
--- NOTE | 2022-03-17 15:26 | XRR_ITS ---
PROCEDURE INFORMATION: Exam: XR Chest Exam date and time: 03/17/2022 5:02 PM Age: 46 years old Clinical indication: Injury or trauma; Other: Blunt trauma to chest; Blunt trauma (contusions or hematomas) TECHNIQUE: Imaging protocol: Radiologic exam of the chest. Views: 1 view. COMPARISON: CR XR chest 1V portable [id number] 05/04/2020 6:37 PM FINDINGS: Lungs: Left lower lobe atelectasis. Pleural spaces: Unremarkable. No pleural effusion. No pneumothorax. Heart/Mediastinum: Unremarkable. No cardiomegaly. Bones/joints: Unremarkable. XR/XR chest 1V portable [id number] IMPRESSION: Left lower lobe atelectasis.
--- NOTE | 2022-03-17 15:26 | ECG_ITS ---
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 Measurements Intervals [place] Rate: 77 P: 14 [place]: 181 QRS: 28 QRSD: 106 T: 72 QT: 387 QTc: 439 Interpretive Statements SINUS RHYTHM INTERPRETATION BASED ON A DEFAULT AGE OF 40 YEARS Compared to ECG 05/04/2020 19:18:58 Ventricular premature complex(es) no longer present Electronically Signed On 03-18-2022 10:32:02 CDT by Andriy Perez M.D. [id number]
--- NOTE | 2022-03-17 17:22 | W.ED.GENADLT ---
HPI - General Adult General: Chief complaint: General Medical Stated complaint: left side pain Time Seen by Provider: 03/17/22 17:21 History of Present Illness: 46-year-old male patient comes in today for complaints of left anterior chest wall pain. Patient reports 5 days ago he was getting his back popped while lying flat on the floor. He felt a discomfort in his left anterior chest wall. Patient reports that there is been some mild tenderness but today he tripped and caught himself and had a sudden sharp pain to the left anterior rib area again. Since then patient has had increased pain and discomfort with movement, deep breath, and lifting left arm above the shoulder. Patient appears in no pain at rest. Patient appears nontoxic. Review of Systems General: Reports: 10 or more systems reviewed and unremarkable except in HPI and below Musc: Reports: other (Anterior chest wall tenderness) [facility] ED PFSH: Medical History Asthma Diabetes mellitus GERD (gastroesophageal reflux disease) Hypertension Morbid obesity Psychiatric care Right tibial fracture Family History Mother Diabetes Father No problems noted. Social History Smoking and tobacco status: never smoked Alcohol intake: never Marital status: Current occupational status: employed History of recent travel: No Physical Exam Const: COMMON NORMALS: alert HENMT: COMMON NORMALS: normocephalic HEAD & SCALP: normocephalic Neck/C-Spine: COMMON NORMALS: full ROM Chest: COMMONS NORMALS: normal inspection of the chest; negative for normal palpation of entire chest wall OTHER: Left anterior chest wall tenderness Resp: COMMON NORMALS: normal respiratory effort and clear to auscultation bilaterally AUSCULTATION: clear to auscultation bilaterally Cardio: COMMON NORMALS: regular rate and regular rhythm RATE: regular rate RHYTHM: regular rhythm GI: COMMON NORMALS: Soft to palpation and non-tender PALPATION: Yes Soft to palpation Extremity: COMMON NORMALS: normal to inspection Neuro: SENSORIUM/ORIENTATION: Yes alert Skin: COMMON NORMALS: no rashes or lesions noted GENERAL SKIN EXAM: no rashes or lesions noted Course Vital Signs: Vital signs: Vital Signs Temperature 97.3 F L 03/17/22 15:20 Pulse Rate 84 03/17/22 15:20 Respiratory Rate 16 03/17/22 15:20 Blood Pressure 135/67 03/17/22 15:20 Pulse Oximetry 98 03/17/22 15:20 [facility] - General Adult Medical Decision Making Patient comes in for concerns of injury to the left anterior chest. Patient had pain and discomfort to the left anterior chest for about 5 days. On exam there is no palpable crepitus or deformity noted to the left anterior chest wall. Lungs are clear to auscultation. No respiratory distress is noted. Differential diagnosis includes fractured rib, costochondritis, contusion. 1 view chest x-ray showed no rib fracture but some mild atelectasis to the left lower lobe. This most likely is a secondary to poor inspiration of lung field. Recommended patient drink plenty of fluids. Take good deep breaths. Use acetaminophen and ibuprofen for pain. Follow-up with primary care for further instruction. Return to the ER for worsening pain and discomfort or high fever. Lab Data Radiology Impressions Chest X-Ray 03/17/22 15:26 IMPRESSION: Left lower lobe atelectasis. Discharge Plan Discharge Patient Disposition: Home Clinical Impression: Costochondral chest pain Condition: Stable Prescriptions: No Action Januvia 100 mg tablet 100 mg PO DAILY celecoxib [Celebrex] 200 mg capsule 200 mg PO DAILY Qty: 30 0RF naproxen-diphenhydramine 220-25 mg tablet PO gabapentin 600 mg tablet 600 mg PO TID Victoza 2-Tho 0.6 mg/0.1 mL (18 mg/3 mL) pen injector 1.8 mg SUBCUT DAILY Farxiga 5 mg tablet 5 mg PO DAILY apple cider vinegar 600 mg capsule PO Flomax 0.4 mg capsule 0.4 mg PO DAILY Qty: 30 1RF glipizide 10 mg Tablet 10 mg PO BID aspirin 81 mg Tablet,Delayed Release (Dr/Ec) 81 mg PO DAILY ibuprofen 200 mg Tablet 800 mg PO PRN Hold Instructions: Do not take while taking celebrex. omeprazole 20 mg Capsule,Delayed Release(Dr/Ec) 20 mg PO DAILY albuterol sulfate [ProAir HFA] 90 mcg/actuation Hfa Aerosol Inhaler 2 puff INHALATION Q4H PRN (Reason: Shortness Of Breath) Rx Instructions: this medication was on the [facility] med list PT STATES HIS NEBULIZER STOPPED WORKING SO HE HASN'T USED THIS MEDICAITON. ondansetron HCl 4 mg tablet 4 mg PO Q6H PRN (Reason: nausea and vomiting) Qty: 20 0RF hydrocodone-acetaminophen 5-325 mg tablet 1 tab PO Q6H PRN (Reason: pain) Qty: 14 0RF ondansetron 4 mg tablet,disintegrating 4 mg PO Q6H PRN (Reason: nausea and vomiting) Qty: 14 0RF Discharge Orders: Discharge ED (Routine); Ordered 03/17/22 Ordered By: Tyrone Alejandre Referrals: Georgia Harrison MD [Primary Care Provider] - Discharge Diet: Usual diet Discharge Activity: Increase activity as tolerated Patient Instructions: Musculoskeletal Pain (ED) Activity Restrictions/Additional Instructions: Activity as tolerated. Use acetaminophen and ibuprofen for pain. Drink plenty of water with medications. Follow-up with primary care for further instruction. Return to ER for new concerns. 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
== END 2022-03-17 18:17 | disposition home or self-care (01) ==
PROVIDERS: Emergency Provider Nurse Practitioner Family; PCP Family Medicine
DX: R07.89 Other chest pain (principal); Z79.82 Long term (current) use of aspirin; Z79.84 Long term (current) use of oral hypoglycemic drugs; E11.9 Type 2 diabetes mellitus without complications; I10 Essential (primary) hypertension
CPT/HCPCS: 71045; 93005; 99284

== ENCOUNTER 2022-09-13 10:28 | Outpatient (CLI) | payer MEDICAID, SELFPAY ==
--- NOTE | 2022-09-13 10:30 | XR_ITS ---
WS: [id number] Exam: XR KUB [id number] Date/Time of Exam: 09/13/2022 10:34 AM Reason For Exam: Renal Stone No bowel obstruction or free air. 4 mm calcification seen in the right abdomen and probably represent s a known small nonobstructing stone in the right kidney. Nonspecific pelvic calcification. Moderate amount stool in the transverse and right colon. Mild levoscoliosis of the lumbar spine. No sign of o rgan enlargement. XR/XR KUB [id number] IMPRESSION: 1. 4 mm right abdominal calcifications that may represent a small renal stone. 2. No acute abdominal finding. 3. Nonspecific pelvic calcifications
== END 2022-09-13 10:29 | disposition home or self-care (01) ==
PROVIDERS: PCP Family Medicine; Visit Provider Urology
DX: N20.0 Calculus of kidney (principal)
CPT/HCPCS: 74018; 81003

== ENCOUNTER 2023-01-01 11:55 | Emergency (ER) | payer MEDICAID, SELFPAY ==
[2023-01-01] VITALS (55 sets, daily range): BP systolic 130–158; BP diastolic 70–101; PULSE 90; RESP 18; TEMP 36.9; O2SAT 92–99
[2023-01-01 12:49] LABS: Basophils % 0.3 %; Eosinophils % 1.2 %; Hematocrit 45.3 % (42.0-52.0); Hemoglobin 14.8 g/dL (11.7-16.6); Lymphocytes # 0.8 10^3/uL (0.8-4.8); Lymphocytes % 22.8 %; Mean Corpuscular HGB Conc 32.7 g/dL (30.0-36.0); Mean Corpuscular Hemoglobin 29.1 pg (28.0-34.0); Mean Corpuscular Volume 89.2 fl (80-94); Monocytes # 0.4 10^3/uL (0.2-0.9); Monocytes % 10.8 %; Neutrophils # 2.15 10^3/uL (1.8-7.7); Neutrophils % 64.6 %; Nucleated Red Blood Cells % 0 %; Platelet Count 164 10^3/cmm (130-400); Red Blood Count 5.08 10^6/uL (4.1-5.3); Red Cell Distribution Width 14.3 % (12.1-15.1); White Blood Count 3.3 10^3/uL (4.0-10.0)
[2023-01-01 12:56] LABS: Glucose Point of Care 158 mg/dL (70-110)
--- NOTE | 2023-01-01 13:04 | ECG_ITS ---
[facility] Test Date: 2023-01-01 Pat Name: Deacon Win Department: Room: Gender: Male Aprn: : 1975 Requested By: Phillip Mccabe Order Number: [id number] Grover MD: Freddie Freire M.D. Measurements Intervals [place] Rate: 67 P: 38 SD: 158 QRS: 45 QRSD: 117 T: 69 QT: 392 QTc: 415 Interpretive Statements SINUS RHYTHM WITH SINUS ARRHYTHMIA INCOMPLETE RIGHT BUNDLE BRANCH BLOCK [90+ ms QRS DURATION, TERMINAL R IN V1/V2, 40+ ms S IN I/aVL/V4/V5/V6] Compared to ECG 03/17/2022 15:28:24 Incomplete right bundle-branch block now present Electronically Signed On 01-01-2023 16:52:51 CDT by Freddie Freire M.D. [id number]
--- NOTE | 2023-01-01 13:11 | W.ED.GENADLT ---
HPI - General Adult General: Chief complaint: General Medical Stated complaint: headache, n/v, tick bite Time Seen by Provider: 01/01/23 12:48 History of Present Illness: Patient presents to the ER from home with complaints of approximately 2-day. Of headache nausea fatigue dizziness diarrhea. Patient had a tick bite on his abdomen approximately 1 week ago. Patient does state he mowed his yard for 3 to 4 hours on Saturday and his son and got a bad sunburn on his arms. Patient does not think he could be dehydrated and this is causing his symptoms. Patient does not normally get headaches. MD complaint: Nausea headache tick bite exhaustion fatigue dizziness Onset (ago): day(s) (About 2 days ago) Location: head Radiation: non-radiation Severity: mild Quality: aching Pain Consistency: constant Relieving factors: none Exacerbating factors: none Associated symptoms: Reports decreased appetite, fevers/chills, headache(s) and nausea; Deny chest pain, dyspnea, rash, palpitations or vomiting Treatments prior to arrival: none Review of Systems General: Reports: 10 or more systems reviewed and unremarkable except in HPI and below Const: Denies: fever(s) or chills Eyes: Denies: change in vision or blurry vision ENMT: Denies: throat pain or odynophagia Card: Denies: chest pain, palpitations or irregular heart rhythm Resp: Denies: dyspnea, productive cough or non-productive cough GI: Reports: nausea; Denies: abdominal pain or vomiting : Denies: flank pain, difficulty urinating or dysuria Musc: Denies: neck pain or back pain Skin/Breast: Denies: rash or pruritus Neuro: Reports: headache(s) and weakness in extremities (Generalized); Denies: numbness in extremities Psych: Denies: anxiety, depression or mood swings Endo: Reports: tired all the time; Denies: polyuria or polydipsia Ovidio/Lymph: Denies: easy bruising or easy bleeding PFSH ED PFSH: Medical History Asthma Diabetes mellitus GERD (gastroesophageal reflux disease) Hypertension Morbid obesity Psychiatric care Right tibial fracture Urolithiasis Family History Mother Diabetes Father No problems noted. Social History Smoking and tobacco status: former smoker Quit status (tobacco): has quit using tobacco Year quit tobacco: 2003/Chewing tobacco. Second hand smoke exposure: Yes (Occ.) Smoking risk assessment/counseling performed?: No Alcohol intake: current Alcohol intake frequency: holidays/special occasions only Alcohol type: beer Desire information about alcohol rehabilitation?: No Counseling given: Yes (Alcohol & medicine don't mix.) Substance/Drug Use: never Desire information about substance/drug rehabilitation?: No Counseling given: No Marital status: Current occupational status: employed Physical Exam Const: COMMON NORMALS: no acute distress, average body habitus, patient oriented x3, no limitations, healthy appearing, alert and well nourished HENMT: COMMON NORMALS: normocephalic, atraumatic, hearing grossly normal bilaterally, external ears normal, Normal external nose present and moist oral mucous membranes HEAD & SCALP: normocephalic and atraumatic NOSE: Normal external nose present EXTERNAL EAR: Yes external ears normal Eye: COMMON NORMALS: Equal, round and reactive pupils present, EOMs intact bilaterally, conjunctivae normal and no scleral icterus CONJUNCTIVA: Yes conjunctivae normal PUPIL: Yes Equal, round and reactive pupils present Neck/C-Spine: COMMON NORMALS: full ROM, no lymphadenopathy, supple, no meningeal signs, no JVD and Thyroid normal THYROID: Thyroid normal Lymph: LYMPHATIC: no lymphadenopathy noted Chest: COMMONS NORMALS: normal inspection of the chest and normal palpation of entire chest wall Resp: COMMON NORMALS: normal respiratory effort, No retractions, No use of accessory muscles and clear to auscultation bilaterally AUSCULTATION: clear to auscultation bilaterally Cardio: COMMON NORMALS: no JVD, regular rhythm, S1 normal heart sound present, S2 normal heart sound present, No gallops present (Cardio), No clicks present (Cardio) and No murmurs present (Cardio) RHYTHM: regular rhythm HEART SOUNDS: S1 normal heart sound present and S2 normal heart sound present GI: COMMON NORMALS: Normal to inspection, nondistended, normoactive bowel sounds present, Soft to palpation, non-tender, No hepatosplenomegaly present and no masses PALPATION: Yes Soft to palpation and Yes No hepatosplenomegaly present : COMMON NORMALS: Yes no CVA tenderness BLADDER/KIDNEY EXAM: Yes no CVA tenderness Back/Pelvis: COMMON NORMALS: no CVA tenderness Extremity: COMMON NORMALS: normal to inspection Neuro: COMMON NORMALS: patient oriented x3 SENSORIUM/ORIENTATION: Yes alert MENINGEAL SIGNS: Yes no meningeal signs Course Vital Signs: Vital signs: Vital Signs Temperature 98.4 F 01/01/23 13:01 Pulse Rate 90 01/01/23 13:01 Respiratory Rate 18 01/01/23 13:01 Blood Pressure 154/101 01/01/23 16:25 Pulse Oximetry 95 01/01/23 16:25 Oxygen Delivery Me thod Room Air 01/01/23 13:01 MDM - General Adult Medical Decision Making Tick panel was sent out we will treat prophylactically with doxycycline Differential Diagnosis Diabetes, heat exhaustion, dehydration, tickborne illness, headache Medical Records I reviewed the patient's medical records. Lab Data I reviewed the patient's lab results. Patient presents to the ER with complaints of being bitten by multiple ticks, having pains all over and weakness all over. Physical exam was performed. Lab work was obtained which was essentially benign. Tick panel was sent off. Patient will be treated with doxycycline and await the tick panel. Patient should follow-up with his family practice doc within 1 week for further treatment. 01/01/23 12:40 01/01/23 12:40 Laboratory Results WBC 3.3 10^3/uL (4.0-10.0) L 01/01/23 12:40 RBC 5.08 10^6/uL (4.1-5.3) 01/01/23 12:40 Hgb 14.8 g/dL (11.7-16.6) 01/01/23 12:40 Hct 45.3 % (42.0-52.0) 01/01/23 12:40 MCV 89.2 fl (80-94) 01/01/23 12:40 MCH 29.1 pg (28.0-34.0) 01/01/23 12:40 MCHC 32.7 g/dL (30.0-36.0) 01/01/23 12:40 RDW 14.3 % (12.1-15.1) 01/01/23 12:40 Plt Count 164 10^3/cmm (130-400) 01/01/23 12:40 MPV 10.0 fL (7.4-10.4) 01/01/23 12:40 Neut % (Auto) 64.6 % 01/01/23 12:40 Lymph % (Auto) 22.8 % 01/01/23 12:40 [place] % (Auto) 10.8 % 01/01/23 12:40 Eos % (Auto) 1.2 % 01/01/23 12:40 Baso % (Auto) 0.3 % 01/01/23 12:40 Neut # (Auto) 2.15 10^3/uL (1.8-7.7) 01/01/23 12:40 Lymph # (Auto) 0.8 10^3/uL (0.8-4.8) 01/01/23 12:40 [place] # (Auto) 0.4 10^3/uL (0.2-0.9) 01/01/23 12:40 Eos # (Auto) 0.0 10^3/uL (0.0-0.8) 01/01/23 12:40 Baso # (Auto) 0.0 10^3/uL (0.0-0.1) 01/01/23 12:40 Nucleated RBC % (auto) 0 % 01/01/23 12:40 Nucleated RBCs # 0.0 /100WBC 01/01/23 12:40 Sodium 135 mmol/L (136-145) L 01/01/23 12:40 Potassium 3.6 mmol/L (3.5-5.1) 01/01/23 12:40 Chloride 100 mmol/L (98-107) 01/01/23 12:40 Carbon Dioxide 24 mmol/L (22-29) 01/01/23 12:40 Anion Gap 14.6 (5-19) 01/01/23 12:40 BUN 10 mg/dL (6-20) 01/01/23 12:40 Creatinine 0.8 mg/dL (0.7-1.2) 01/01/23 12:40 GFR Calculation 103.2 mL/min (90-130) 01/01/23 12:40 Glucose 183 mg/dL (65-115) H 01/01/23 12:40 POC Glucose 158 mg/dL (70-110) H 01/01/23 12:54 Calculated Osmolality 284 mOsm/kg (285-295) L 01/01/23 12:40 Calcium 8.3 mg/dL (8.5-10.5) L 01/01/23 12:40 Magnesium 1.9 mg/dL (1.7-2.3) 01/01/23 12:40 Total Bilirubin 0.2 mg/dL (0.15-1.2) 01/01/23 12:40 AST 29 U/L (0-40) 01/01/23 12:40 ALT 35 U/L (0-41) 01/01/23 12:40 Alkaline Phosphatase 84 U/L (40-130) 01/01/23 12:40 Total Protein 7.1 g/dL (6.6-8.7) 01/01/23 12:40 Albumin 3.9 g/dL (3.5-5.2) 01/01/23 12:40 Globulin 3.2 g/dL (1.3-4.6) 01/01/23 12:40 Lipase 37 U/L (13-60) 01/01/23 12:40 EKG Data EKG 1: I personally reviewed and interpreted this EKG as follows: EKG interpretation date: 01/01/23 EKG interpretation time: 14:22 Prior EKG tracings: not available for review Interpretation: EKG showed ventricular rate of 67 bpm, FL interval 158, QRS duration 117, QTc of 407, sinus rhythm with sinus arrhythmia, incomplete right bundle branch block, Discharge Plan Discharge Patient Disposition: Home Clinical Impression: Myalgia, Weakness generalized Tick bite Qualifiers: Encounter type: initial encounter Site of tick bite: unspecified site Qualified Code(s): W57.XXXA - Bitten or stung by nonvenomous insect and other nonvenomous arthropods, initial encounter Condition: Stable Prescriptions: New doxycycline hyclate 100 mg capsule 100 mg PO BID 10 Days Qty: 20 0RF No Action cyclobenzaprine 10 mg tablet 5 mg PO BEDTIME glipizide 10 mg Tablet 10 mg PO BID aspirin 81 mg Tablet,Delayed Release (Dr/Ec) 81 mg PO QAM omeprazole 20 mg Capsule,Delayed Release(Dr/Ec) 20 mg PO BID albuterol sulfate [ProAir HFA] 90 mcg/actuation Hfa Aerosol Inhaler 2 puff INHALATION Q4H PRN (Reason: Shortness Of Breath) hydrocodone-acetaminophen 5-325 mg tablet 1 tab PO Q6H PRN (Reason: pain) Qty: 14 0RF gabapentin 800 mg tablet 800 mg PO BID ibuprofen 200 mg Tablet 800 mg PO Q8H PRN (Reason: Pain) rosuvastatin 5 mg tablet 5 mg PO BEDTIME Victoza 3-Tho 0.6 mg/0.1 mL (18 mg/3 mL) pen injector 1.8 mg SUBCUT QAM Farxiga 10 mg tablet 10 mg PO QAM Force Factor Probiotics Apple 2 tab PO DAILY Prozac 40 mg capsule 80 mg PO QAM Discharge Orders: Discharge ED (Routine); Ordered 01/01/23 Ordered By: Phillip Mccabe Referrals: Jose Raul Young [Primary Care Provider] - Patient Instructions: Tick Bite (ED) Activity Restrictions/Additional Instructions: Please take your antibiotics as directed. Please await the tickborne panel as a result should come in 3 to 5 days. 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
[2023-01-01 13:19] LABS: Alanine Aminotransferase 35 U/L (0-41); Albumin Level 3.9 g/dL (3.5-5.2); Alkaline Phosphatase 84 U/L (40-130); Anion Gap 14.6 (5-19); Aspartate Amino Transferase 29 U/L (0-40); Blood Urea Nitrogen 10 mg/dL (6-20); Calcium 8.3 mg/dL (8.5-10.5); Carbon Dioxide 24 mmol/L (22-29); Chloride 100 mmol/L (98-107); Globulin 3.2 g/dL (1.3-4.6); Glomerular Filtration Rate 103.2 mL/min (90-130); Glucose 183 mg/dL (65-115); Lipase 37 U/L (13-60); Osmolality Calculated 284 mOsm/kg (285-295); Potassium 3.6 mmol/L (3.5-5.1); Sodium 135 mmol/L (136-145); Total Bilirubin 0.2 mg/dL (0.15-1.2); Total Protein 7.1 g/dL (6.6-8.7)
[2023-01-01 13:25] LABS: Magnesium 1.9 mg/dL (1.7-2.3)
[2023-01-01] MEDS: sodium chloride 0.9% 1,000 ML 999 ML IV ×2 (13:46→15:23)
[2023-01-01] MEDS: ketorolac 30 mg/mL INJ IVP (15:23)
[2023-01-01 17:20] LABS: Add Urine Microscopic? NO; Charge for UA Resulting for Rev
[2023-01-01 17:21] LABS: Bilirubin Urine Neg (Negative); Blood Urine Neg (Negative); Glucose Urine UA 4+ (Normal); Ketones Urine Negative (Negative); Leukocyte Esterase Urine Negative (Negative); Nitrate Urine Negative (Negative); Protein Urine Neg (Negative); Urine Appearance Clear (CLEAR); Urine Color Yellow (Yellow); Urobilinogen Urine Neg (Negative); pH Urine 7 (5-7)
[2023-01-02 12:50] LABS: Lyme AB Screen <0.90 index
[2023-01-08 21:49] LABS: E. Chaffeensis AB IGG <1:64; E. Chaffeensis AB IGM <1:20
[2023-01-10 16:39] LABS: RMSF IGG DETECTED; RMSF IGM NOT DETECTED
== END 2023-01-01 17:32 | disposition home or self-care (01) ==
PROVIDERS: Physician Assistant; Emergency Provider Emergency Medicine; PCP Family Medicine
DX: M79.10 Myalgia, unspecified site (principal); R53.1 Weakness; S30.861A Insect bite (nonvenomous) of abdominal wall, initial encounter; W57.XXXA Bitten or stung by nonvenomous insect and other nonvenomous arthropods, initial encounter; E11.9 Type 2 diabetes mellitus without complications; I10 Essential (primary) hypertension; Z87.891 Personal history of nicotine dependence; Z79.82 Long term (current) use of aspirin; Z79.84 Long term (current) use of oral hypoglycemic drugs
CPT/HCPCS: 36415; 36416; 80053; 81003; 82962; 83690; 83735; 85025; 86618; 86666; 86757; 93005; 96361; 96374; 99284; J1885; J7030

== ENCOUNTER 2023-04-28 22:06 | Emergency (ER) | payer MEDICAID, SELFPAY ==
[2023-04-28 22:11] VITALS: BP 134/73; PULSE 60; RESP 18; TEMP 36.4; O2SAT 97; BMI 38.7
--- NOTE | 2023-04-28 23:10 | ED_ITS ---
HPI - Headache General: Chief Complaint: Headache Stated Complaint: head pain Time Seen by Provider: 04/28/23 23:01 History of Present Illness: 47-year-old male patient comes in today for complaints of headache for 2 days. Patient reports it started in the frontal sinuses but now has progressed behind his eyes to the back of his head. Patient reports no fever or chills. Patient appears in mild to moderate pain. Patient reports no cough, nausea vomiting, diarrhea or other symptoms. Patient denies any prior headaches. Patient does have a history of diabetes and neuropathy. Review of Systems General: Reports: 10 or more systems reviewed and unremarkable except in HPI and below Neuro: Reports: headache(s) PFSH ED PFSH: Medical History Asthma Diabetes mellitus GERD (gastroesophageal reflux disease) Hypertension Morbid obesity Psychiatric care Right tibial fracture Urolithiasis Family History Mother Diabetes Father No problems noted. Social History Smoking and tobacco status: former smoker Quit status (tobacco): has quit using tobacco Year quit tobacco: 2002/Chewing tobacco. Second hand smoke exposure: Yes (Occ.) Smoking risk assessment/counseling performed?: No Alcohol intake: current Alcohol intake frequency: holidays/special occasions only Alcohol type: beer Desire information about alcohol rehabilitation?: No Counseling given: Yes (Alcohol & medicine don't mix.) Substance/Drug Use: never Desire information about substance/drug rehabilitation?: No Counseling given: No Marital status: Current occupational status: employed Physical Exam Const: COMMON NORMALS: alert HENMT: COMMON NORMALS: normocephalic HEAD & SCALP: normocephalic Neck/C-Spine: COMMON NORMALS: full ROM Resp: COMMON NORMALS: normal respiratory effort and clear to auscultation bilaterally AUSCULTATION: clear to auscultation bilaterally Cardio: COMMON NORMALS: regular rate and regular rhythm RATE: regular rate RHYTHM: regular rhythm GI: COMMON NORMALS: Soft to palpation PALPATION: Yes Soft to palpation Back/Pelvis: COMMON NORMALS: thoracic and lumbar spine normal to inspection Extremity: COMMON NORMALS: no pedal edema Neuro: SENSORIUM/ORIENTATION: Yes alert Skin: COMMON NORMALS: turgor normal GENERAL SKIN EXAM: turgor normal Course Vital Signs: Vital signs: Vital Signs Temperature 97.6 F 04/28/23 22:11 Pulse Rate 60 04/28/23 22:11 Respiratory Rate 18 04/28/23 22:11 Blood Pressure 134/73 04/28/23 22:11 Pulse Oximetry 97 04/28/23 22:11 Oxygen Delivery Me thod Room Air 04/28/23 22:11 MDM - Headache Medical Decision Making Patient comes in today for complaints of a headache for the last 2 days. Patient appears nontoxic. Patient appears in mild to moderate pain. On exam pupils are equal and reactive. No focal neural deficits. Patient moves all extremities well. Abdomen soft nontender. No swelling is noted in the extre mities. Vital signs are normal. Differential diagnosis includes but not limited to intracranial mass, intracranial bleeding, migraine headache, classic headache, sinusitis, viral syndrome. CT of the head was unremarkable. CBC and CMP was normal for patient. Patient was made with a headache cocktail with improvement of headache and was discharged to home. Patient was recommended to follow-up with primary care for further instruction return to ED for worsening symptoms. Lab Data 04/28/23 23:25 04/28/23 23:[address] 04/28/23 23:15 IMPRESSION: No acute intracranial abnormality. Laboratory Results WBC 5.18 10^3/uL (3.29-11.43) 04/28/23: RBC 4.61 10^6/uL (3.85-5.65) 04/28/23: Hgb 13.40 g/dL (11.27-16.99) 04/28/23: Hct 39.9 % (37-53) 04/28/23: MCV 86.6 fl (82-101) 04/28/23: MCH 29.1 pg (27-33) 04/28/23: MCHC 33.6 g/dL (30-55) 04/28/23: RDW 14.0 % (12.1-15.1) 04/28/23: Plt Count 215 10^3/cmm (157-399) 04/28/23: MPV 9.9 fL (7.4-10.4) 09/10/23 23:25 Neut % (Auto) 55.1 % 04/28/23 23:25 Lymph % (Auto) 34.9 % 04/28/23 23:25 [place] % (Auto) 6.9 % 04/28/23 23:25 Eos % (Auto) 2.7 % 04/28/23 23:25 Baso % (Auto) 0.2 % 04/28/23 23: Neut # (Auto) 2.85 10^3/uL (1.8-7.7) 04/28/23 23: Lymph # (Auto) 1.8 10^3/uL (0.8-4.8) 04/28/23 23:25 [place] # (Auto) 0.4 10^3/uL (0.2-0.9) 04/28/23 23: Eos # (Auto) 0.1 10^3/uL (0.0-0.8) 04/28/23 23:25 Baso # (Auto) 0.0 10^3/uL (0.0-0.1) 04/28/23 23:25 Nucleated RBC % (auto) 0 % 04/28/23 23: Nucleated RBCs # 0.0 /100WBC 04/28/23 23:25 ESR 1 mm/hr (0-10) 04/28/23 23:25 Sodium 141 mmol/L (136-145) 04/28/23 23:25 Potassium 3.7 mmol/L (3.5-5.1) 04/28/23 23:25 Chloride 104 mmol/L (98-107) 04/28/23 23:25 Carbon Dioxide 27 mmol/L (22-29) 04/28/23 23:25 Anion Gap 13.7 (5-19) 04/28/23 23:25 BUN 13 mg/dL (6-20) 04/28/23 23:25 Creatinine 0.9 mg/dL (0.7-1.2) 04/28/23 23:25 GFR Calculation 90.1 mL/min (90-130) 04/28/23 23:25 Glucose 189 mg/dL (65-115) H 04/28/23 23:25 Calculated Osmolality 297 mOsm/kg (285-295) H 04/28/23 23:25 Calcium 8.4 mg/dL (8.5-10.5) L 04/28/23 23:25 Total Bilirubin 0.2 mg/dL (0.15-1.2) 04/28/23 23:25 AST 15 U/L (0-40) 04/28/23 23:25 ALT 19 U/L (0-41) 04/28/23 23:25 Alkaline Phosphatase 74 U/L (40-130) 04/28/23 23:25 C-Reactive Protein 3.0 mg/L (0.0-4.9) 04/28/23 23:25 Total Protein 6.9 g/dL (6.6-8.7) 04/28/23 23:25 Albumin 4.1 g/dL (3.5-5.2) 04/28/23 23:25 Globulin 2.8 g/dL (1.3-4.6) 04/28/23 23:25 Discharge Plan Discharge Patient Disposition: Home Clinical Impression: Headache Qualifiers: Headache type: unspecified Headache chronicity pattern: acute headache Intractability: not intractable Qualified Code(s): R51.9 - Headache, unspecified Condition: Stable Prescriptions: No Action cyclobenzaprine 10 mg tablet 5 mg PO BEDTIME Prozac 40 mg capsule 80 mg PO QAM Qty: 60 2RF glipizide 10 mg Tablet 10 mg PO BID aspirin 81 mg Tablet,Delayed Release (Dr/Ec) 81 mg PO QAM omeprazole 20 mg Capsule,Delayed Release(Dr/Ec) 20 mg PO BID albuterol sulfate [ProAir HFA] 90 mcg/actuation Hfa Aerosol Inhaler 2 puff INHALATION Q4H PRN (Reason: Shortness Of Breath) hydrocodone-acetaminophen 5-325 mg tablet 1 tab PO Q6H PRN (Reason: pain) Qty: 14 0RF gabapentin 800 mg tablet 800 mg PO BID ibuprofen 200 mg Tablet 800 mg PO Q8H PRN (Reason: Pain) rosuvastatin 5 mg tablet 5 mg PO BEDTIME Victoza 3-Tho 0.6 mg/0.1 mL (18 mg/3 mL) pen injector 1.8 mg SUBCUT QAM Farxiga 10 mg tablet 10 mg PO QAM Force Factor Probiotics Apple 2 tab PO DAILY Discharge Orders: Discharge ED (Routine); Ordered 04/29/23 Ordered By: Tyrone Alejandre Referrals: Jose Raul Young [Primary Care Provider] - Discharge Diet: Usual diet Discharge Activity: Increase activity as tolerated Patient Instructions: General Headache (ED) Activity Restrictions/Additional Instructions: Drink plenty water and fluids. Follow-up with primary care for further instructions. Return to ED for new concerns. 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
--- NOTE | 2023-04-28 23:15 | CTR_ITS ---
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 Radiation optimization: All CT scans at this facility use at least one of these dose optimization techniques: automated exposure control; mA and/or kV adjustment per patient size (includes targeted exams where dose is matched to clinical indication); or iterative reconstruction. REPORTING DATA: Count of CT and Cardiac NM exams in prior 12 months: This patient has received 0 known CTs and 0 known cardiac nuclear medicine studies in the 12 months prior to the current study. COMPARISON: CT head wo con* [id number] 01/27/2022 4:02 PM RADIATION DOSE METRICS: Total DLP (mGy-cm): 1018.08 FINDINGS: Brain: No focal hemorrhage or midline shift is identified. Cerebral ventricles: No ventriculomegaly or evidence of acute hydrocephalus. There is a posterior fossa sandra cisterna magna or arachnoid cyst noted. Paranasal sinuses: The partially assessed sinuses are grossly clear. Mastoid air cells: Visualized mastoid air cells are well aerated. Bones/joints: No displaced skull fracture is noted. Soft tissues: Unremarkable. CT/CT head wo con* [id number] IMPRESSION: No acute intracranial abnormality.
[2023-04-28] MEDS: sodium chloride 0.9% 500 ML 999 ML IV (23:25)
[2023-04-28] MEDS: metoclopramide 5 mg/mL SDV 2 mL 10 MG IVP (23:26)
[2023-04-28] MEDS: diphenhydrAMINE 50 mg/mL SDV 1mL 12.5 MG IVP (23:28)
[2023-04-28 23:30] LABS: Basophils % 0.2 %; Eosinophils # 0.1 10^3/uL (0.0-0.8); Eosinophils % 2.7 %; Hematocrit 39.9 % (37-53); Lymphocytes # 1.8 10^3/uL (0.8-4.8); Lymphocytes % 34.9 %; Mean Corpuscular HGB Conc 33.6 g/dL (30-55); Mean Corpuscular Hemoglobin 29.1 pg (27-33); Mean Corpuscular Volume 86.6 fl (82-101); Mean Platelet Volume 9.9 fL (7.4-10.4); Monocytes # 0.4 10^3/uL (0.2-0.9); Monocytes % 6.9 %; Neutrophils # 2.85 10^3/uL (1.8-7.7); Neutrophils % 55.1 %; Nucleated Red Blood Cells % 0 %; Platelet Count 215 10^3/cmm (157-399); Red Blood Count 4.61 10^6/uL (3.85-5.65); White Blood Count 5.18 10^3/uL (3.29-11.43)
[2023-04-28] MEDS: ketorolac 30 mg/mL INJ 15 MG IVP (23:31)
[2023-04-28] MEDS: dexamethasone 4 mg/mL INJ 8 MG IVP (23:33)
[2023-04-28 23:34] LABS: Erythrocyte Sedimentation Rate 1 mm/hr (0-10)
[2023-04-28 23:55] LABS: Alanine Aminotransferase 19 U/L (0-41); Albumin Level 4.1 g/dL (3.5-5.2); Alkaline Phosphatase 74 U/L (40-130); Anion Gap 13.7 (5-19); Aspartate Amino Transferase 15 U/L (0-40); Blood Urea Nitrogen 13 mg/dL (6-20); Calcium 8.4 mg/dL (8.5-10.5); Carbon Dioxide 27 mmol/L (22-29); Chloride 104 mmol/L (98-107); Globulin 2.8 g/dL (1.3-4.6); Glomerular Filtration Rate 90.1 mL/min (90-130); Glucose 189 mg/dL (65-115); Osmolality Calculated 297 mOsm/kg (285-295); Potassium 3.7 mmol/L (3.5-5.1); Sodium 141 mmol/L (136-145); Total Bilirubin 0.2 mg/dL (0.15-1.2); Total Protein 6.9 g/dL (6.6-8.7)
== END 2023-04-29 01:05 | disposition home or self-care (01) ==
PROVIDERS: Emergency Provider Nurse Practitioner Family; PCP Family Medicine
DX: R51.9 Headache, unspecified (principal); Z79.82 Long term (current) use of aspirin; Z79.84 Long term (current) use of oral hypoglycemic drugs; E11.9 Type 2 diabetes mellitus without complications; I10 Essential (primary) hypertension; Z87.891 Personal history of nicotine dependence
CPT/HCPCS: 70450; 80053; 85025; 85651; 86140; 96374; 96375; 99285; J1100; J1200; J1885; J2765; J7040

== ENCOUNTER 2024-02-13 05:51 | Emergency (ER) | payer MEDICAID, SELFPAY ==
[2024-02-13 05:54] VITALS: BP 156/94; PULSE 89; RESP 12; O2SAT 100; BMI 39.4
[2024-02-13 06:03] VITALS: TEMP 37.1
--- NOTE | 2024-02-13 06:03 | ECG_ITS ---
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 Measurements Intervals [place] Rate: 87 P: 60 ND: 157 QRS: 29 QRSD: 120 T: 75 QT: 387 QTc: 466 Interpretive Statements SINUS RHYTHM WITH FREQUENT VENTRICULAR PREMATURE COMPLEXES MODERATE INTRAVENTRICULAR CONDUCTION DELAY [110+ ms QRS DURATION] ABNORMAL RHYTHM ECG Compared to ECG 01/01/2023 14:22:08 Ventricular premature complex(es) now present Intraventricular conduction delay now present Sinus arrhythmia no longer present Incomplete right bundle-branch block no longer present Electronically Signed On 02-13-2024 9:38:05 CDT by Andriy Perez M.D. [email or web address]
--- NOTE | 2024-02-13 06:03 | XR_ITS ---
WS: [id number] Exam: XR chest 1V portable [id number] Date/Time of Exam: 02/13/2024 6:53 AM Reason For Exam: chest pain Comparison 03/17/2022. Lungs are clear. Normal cardiomediastinal silhouette. No pleural effusions. Bony structures appear no rmal. XR/XR chest 1V portable [id number] IMPRESSION: 1. Negative chest.
--- NOTE | 2024-02-13 06:04 | ED_ITS ---
HPI - Chest Pain 2 General: Chief Complaint: Chest Pain Stated Complaint: ABD Pain Time Seen by Provider: 02/13/24 05:54 Source: patient Mode of arrival: ambulatory History of Present Illness: 48-year-old male presents emergency room planing of chest and abdominal pain began around 1 AM this morning. Patient had episodes of nausea with dry heaving but no actual vomiting. No diarrhea. He is complaining of the chest discomfort radiating to the left upper quadrant. He does notice that when he drinks even water it seems to make it worse. He denies any dysuria urgency or frequency has not had any associated shortness of breath. No recent medication changes. Patient does not smoke he is diabetic. He has a history of renal stones none of his symptoms are exacerbated or relieved with urination. MD complaint: chest pain Onset (ago): hour(s) Timing of current episode: constant Onset: during rest Pain location: substernal and left chest Pain radiation: abdomen (LUQ) Quality: tightness and heaviness Exacerbating factors: eating Associated symptoms: Reports abdominal pain (LUQ), nausea, palpitations and vomiting (Radiating); Deny diaphoresis, dyspnea, fever(s), leg edema, sense of impending doom, syncope or other Review of Systems 2 Const: Denies: fever(s) or diaphoresis Card: Reports: chest pain and palpitations; Denies: syncope Resp: Denies: dyspnea GI: Reports: abdominal pain (LUQ), nausea and vomiting (Radiating) : Denies: flank pain, dysuria, urinary frequency or urinary urgency Musc: Denies: neck pain or back pain Skin/Breast: Denies: rash PFSH ED 2 PFSH: Medical History Urolithiasis Psychiatric care Right tibial fracture Hypertension GERD (gastroesophageal reflux disease) Morbid obesity Diabetes mellitus Asthma Family History Mother Diabetes Father No problems noted. Social History Smoking and tobacco/nicotine status: former use of tobacco/nicotine Quit status (tobacco/nicotine): has quit using Year quit tobacco: 2003/Chewing tobacco. Second hand smoke exposure: Yes (Occ.) Alcohol intake: current Alcohol intake frequency: holidays/special occasions only Alcohol type: beer Substance/Drug Use: never Marital status: Current occupational status: employed Physical Exam 2 Const: GENERAL APPEARANCE: cooperative and comfortable O RIENTATION/CONSCIOUSNESS: Yes awake, Yes oriented to person, Yes oriented to place and Yes oriented to time HENMT: COMMON NORMALS: normocephalic, atraumatic and hearing grossly normal bilaterally HEAD & SCALP: normocephalic and atraumatic Resp: COMMON NORMALS: normal respiratory effort, No retractions, No use of accessory muscles and clear to auscultation bilaterally AUSCULTATION: clear to auscultation bilaterally Cardio: COMMON NORMALS: regular rate, regular rhythm and No murmurs present (Cardio) RATE: regular rate RHYTHM: regular rhythm GI: COMMON NORMALS: Soft to palpation and No hepatosplenomegaly present A USCULTATION: Yes normoactive bowel sounds PALPATION: Yes Soft to palpation, No Tenderness to palpation present (GI), No Guarding due to palpation present (GI) and Yes No hepatosplenomegaly present Extremity: COMMON NORMALS: normal to inspection, capillary refill normal, no clubbing, cyanosis or edema, no calf tenderness and no pedal edema Neuro: SENSORIUM/ORIENTATION: Yes oriented to person, Yes oriented to place and Yes oriented to time Skin: COMMON NORMALS: no rashes or lesions noted GENERAL SKIN EXAM: no rashes or lesions noted Course 2 Vital Signs: Vital signs: Vital Signs Temperature 98.7 F 02/13/24 06:03 Pulse Rate 90 02/13/24 08:30 Respiratory Rate 25 H 02/13/24 06:30 Blood Pressure 154/89 02/13/24 08:30 Pulse Oximetry 96 02/13/24 08:30 Oxygen Delivery Me thod Room Air 02/13/24 08:30 MDM - Chest Pain Medical Decision Making Chest pain relieved after GI cocktail. Cardiac enzymes and EKG did not show any acute changes EKGs reviewed as found on the chart. He is having no further symptoms at this time. Will stop his omeprazole start pantoprazole 40 mg twice daily for 10 days sent daily. Continue baby aspirin daily set him up for an outpatient cardiac stress test. His Victoza and use of ibuprofen may also play a role in his symptoms. Follow-up with his primary care doctor. Return if has further problems. Medical Records I reviewed the patient's medical records. Lab Data I reviewed the patient's lab results. 02/13/24 05:59 02/13/24 05:59 Radiology Impressions Chest X-Ray 02/13/24 06:03 IMPRESSION: 1. Negative chest. Laboratory Results WBC 15.02 10^3/uL (3.29-11.43) H 02/13/24 05:59 RBC 5.56 10^6/uL (3.85-5.65) 02/13/24 05:59 Hgb 15.70 g/dL (11.27-16.99) 02/13/24 05:59 Hct 47.3 % (37-53) 02/13/24 05:59 MCV 85.1 fl (82-101) 02/13/24 05:59 MCH 28.2 pg (27-33) 02/13/24 05:59 MCHC 33.2 g/dL (30-55) 02/13/24 05:59 RDW 13.8 % (12.1-15.1) 02/13/24 05:59 Plt Count 265 10^3/cmm (157-399) 02/13/24 05:59 MPV 9.9 fL (7.4-10.4) 02/13/24 05:59 Neut % (Auto) 90.4 % 02/13/24 05:59 Lymph % (Auto) 4.2 % 02/13/24 05:59 [place] % (Auto) 4.3 % 02/13/24 05:59 Eos % (Auto) 0.5 % 02/13/24 05:59 Baso % (Auto) 0.3 % 02/13/24 05:59 Neut # (Auto) 13.59 10^3/uL (1.8-7.7) H 02/13/24 05:59 Lymph # (Auto) 0.6 10^3/uL (0.8-4.8) L 02/13/24 05:59 [place] # (Auto) 0.7 10^3/uL (0.2-0.9) 02/13/24 05:59 Eos # (Auto) 0.1 10^3/uL (0.0-0.8) 02/13/24 05:59 Baso # (Auto) 0.0 10^3/uL (0.0-0.1) 02/13/24 05:59 Nucleated RBC % (auto) 0 % 02/13/24 05:59 Nucleated RBCs # 0.0 /100WBC 02/13/24 05:59 Sodium 137 mmol/L (136-145) 02/13/24 05:59 Potassium 3.8 mmol/L (3.5-5.1) 02/13/24 05:59 Chloride 102 mmol/L (98-107) 02/13/24 05:59 Carbon Dioxide 22 mmol/L (22-29) 02/13/24 05:59 Anion Gap 16.8 (5-19) 02/13/24 05:59 BUN 17 mg/dL (6-20) 02/13/24 05:59 Creatinine 0.9 mg/dL (0.7-1.2) 02/13/24 05:59 GFR Calculation 89.7 mL/min (90-130) L 02/13/24 05:59 Glucose 248 mg/dL (65-115) H 02/13/24 05:59 POC Glucose 228 mg/dL (70-110) H 02/13/24 06:35 Calculated Osmolality 294 mOsm/kg (285-295) 02/13/24 05:59 Calcium 8.8 mg/dL (8.5-10.5) 02/13/24 05:59 Total Bilirubin 0.6 mg/dL (0.15-1.2) 02/13/24 05:59 AST 15 U/L (0-40) 02/13/24 05:59 ALT 21 U/L (0-41) 02/13/24 05:59 Alkaline Phosphatase 103 U/L (40-130) 02/13/24 05:59 Troponin T Baseline < 6 ng/L (0-15) 02/13/24 05:59 Troponin T 120 Minute 6.21 ng/L (0-15) 02/13/24 07:40 Delta Troponin T 0.81472 ABS# (0-10) 02/13/24 07:40 Total Protein 7.8 g/dL (6.6-8.7) 02/13/24 05:59 Albumin 4.3 g/dL (3.5-5.2) 02/13/24 05:59 Globulin 3.5 g/dL (1.3-4.6) 02/13/24 05:59 Lipase 36 U/L (13-60) 02/13/24 05:59 TSH 1.05 uIU/mL (0.27-4.20) 02/13/24 05:59 Urine Color Yellow (Yellow) 02/13/24 07:00 Urine Appearance Clear (CLEAR) 02/13/24 07:00 Urine pH 5 (5-7) 02/13/24 07:00 Ur Specific [place] 1.010 (1.005-1.030) 02/13/24 07:00 Urine Protein Neg (Negative) 02/13/24 07:00 Urine Glucose (UA) 4+ (Normal) H 02/13/24 07:00 Urine Ketones 2+ (Negative) H 02/13/24 07:00 Urine Blood Neg (Negative) 02/13/24 07:00 Urine Nitrate Negative (Negative) 02/13/24 07:00 Urine Bilirubin Neg (Negative) 02/13/24 07:00 Urine Urobilinogen Neg mg/dL (Negative) 02/13/24 07:00 Ur Leukocyte Esterase Negative (Negative) 02/13/24 07:00 All radiology interpretation(s) finalized by discharge EKG Data EKG 1: EKG interpretation date: 02/13/24 EKG interpretation time: 05:50 Prior EKG tracings: available for review Other EKG comments: Rate of 87 normal DE interval no acute ST changes noted. Frequent PVCs Short runs of bigeminy. Discharge Plan Discharge Patient Disposition: Home Clinical Impression: Atypical chest pain, GERD (gastroesophageal reflux disease) Condition: Stable Prescriptions: New Protonix 40 mg tablet,delayed release (DR/EC) 40 mg PO Q12H 10 Days Qty: 40 0RF Discontinued omeprazole 20 mg Capsule,Delayed Release(Dr/Ec) 20 mg PO BID No Action Prozac 40 mg capsule 80 mg PO QAM Qty: 180 1RF aspirin 81 mg Tablet,Delayed Release (Dr/Ec) 81 mg PO QAM gabapentin 800 mg tablet 800 mg PO BID ibuprofen 200 mg Tablet 800 mg PO Q8H PRN (Reason: Pain) Victoza 3-Tho 0.6 mg/0.1 mL (18 mg/3 mL) pen injector 1.8 mg SUBCUT QAM dapagliflozin propanediol [Farxiga] 10 mg tablet 10 mg PO QAM cyclobenzaprine 5 mg tablet 5 - 10 mg PO QPM PRN (Reason: muscle spasms) Discharge Orders: Discharge ED (Routine); Ordered 02/13/24 Ordered By: Baltazar Mock Referrals: Jose Raul Young [Primary Care Provider] - Discharge Diet: Usual diet Discharge Activity: Limit activity as instructed Patient Instructions: Opioid Safety, Pain Management Activity Restrictions/Additional Instructions: Thank you for choosing [facility] for your healthcare needs today. It is very important that you follow up as instructed or that you return to the Emergency Department should you have concerns or if your condition changes or worsens in any way. You were seen with complaint of chest discomfort this improved after you were given a medicine to coat the stomach and esophagus. Your cardiac enzymes and EKG did not show any acute changes. Will discharge you home have you stop the omeprazole instead take pantoprazole 40 mg twice a day for 10 days then once daily. Additionally continue taking your aspirin daily. Will also set you up for a cardiac stress test. Return if you have further problems. 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
[2024-02-13] MEDS: aspirin 81 mg Chew Tablet 324 MG PO (06:12)
[2024-02-13 06:14] LABS: Basophils % 0.3 %; Eosinophils # 0.1 10^3/uL (0.0-0.8); Eosinophils % 0.5 %; Hematocrit 47.3 % (37-53); Lymphocytes # 0.6 10^3/uL (0.8-4.8); Lymphocytes % 4.2 %; Mean Corpuscular HGB Conc 33.2 g/dL (30-55); Mean Corpuscular Hemoglobin 28.2 pg (27-33); Mean Corpuscular Volume 85.1 fl (82-101); Mean Platelet Volume 9.9 fL (7.4-10.4); Monocytes # 0.7 10^3/uL (0.2-0.9); Monocytes % 4.3 %; Neutrophils # 13.59 10^3/uL (1.8-7.7); Neutrophils % 90.4 %; Nucleated Red Blood Cells % 0 %; Platelet Count 265 10^3/cmm (157-399); Red Blood Count 5.56 10^6/uL (3.85-5.65); Red Cell Distribution Width 13.8 % (12.1-15.1); White Blood Count 15.02 10^3/uL (3.29-11.43)
[2024-02-13 06:30] VITALS: BP 153/75; PULSE 92; RESP 25; O2SAT 95
[2024-02-13 06:33] LABS: Troponin(5th) Baseline < 6 ng/L (0-15)
[2024-02-13 06:37] LABS: Glucose Point of Care 228 mg/dL (70-110)
[2024-02-13 06:43] LABS: Alanine Aminotransferase 21 U/L (0-41); Albumin Level 4.3 g/dL (3.5-5.2); Alkaline Phosphatase 103 U/L (40-130); Anion Gap 16.8 (5-19); Aspartate Amino Transferase 15 U/L (0-40); Blood Urea Nitrogen 17 mg/dL (6-20); Calcium 8.8 mg/dL (8.5-10.5); Carbon Dioxide 22 mmol/L (22-29); Chloride 102 mmol/L (98-107); Creatinine Clr Calc Pharmacy 131.5781; Globulin 3.5 g/dL (1.3-4.6); Glomerular Filtration Rate 89.7 mL/min (90-130); Glucose 248 mg/dL (65-115); Lipase 36 U/L (13-60); Osmolality Calculated 294 mOsm/kg (285-295); Potassium 3.8 mmol/L (3.5-5.1); Sodium 137 mmol/L (136-145); Thyroid Stimulating Hormone 1.05 uIU/mL (0.27-4.20); Total Bilirubin 0.6 mg/dL (0.15-1.2); Total Protein 7.8 g/dL (6.6-8.7)
[2024-02-13] MEDS: lidocaine 2% viscous 15 ML, aluminum-mag hydrox-simethicon 30 ML, sucralfate oral liq 1 GM PO (07:02)
[2024-02-13 07:13] LABS: Add Urine Microscopic? NO; Charge for UA Resulting for Rev
[2024-02-13 07:22] LABS: Bilirubin Urine Neg (Negative); Blood Urine Neg (Negative); Glucose Urine UA 4+ (Normal); Ketones Urine 2+ (Negative); Leukocyte Esterase Urine Negative (Negative); Nitrate Urine Negative (Negative); Protein Urine Neg (Negative); Urine Appearance Clear (CLEAR); Urine Color Yellow (Yellow); Urobilinogen Urine Neg (Negative); pH Urine 5 (5-7)
[2024-02-13 08:06] LABS: Troponin 5 2HR 6.21 ng/L (0-15); Troponin 5 2HR Delta 0.21001 ABS# (0-10)
[2024-02-13 08:30] VITALS: BP 154/89; PULSE 90; O2SAT 96
== END 2024-02-13 08:40 | disposition home or self-care (01) ==
PROVIDERS: Emergency Provider Family Medicine; PCP Family Medicine
DX: R07.89 Other chest pain (principal); K21.9 Gastro-esophageal reflux disease without esophagitis; Z79.82 Long term (current) use of aspirin; I49.3 Ventricular premature depolarization; R00.8 Other abnormalities of heart beat; I10 Essential (primary) hypertension; E11.9 Type 2 diabetes mellitus without complications; Z87.891 Personal history of nicotine dependence
CPT/HCPCS: 36415; 36416; 71045; 80053; 81003; 82962; 83690; 84443; 84484; 85025; 93005; 99285

== ENCOUNTER 2024-02-25 12:18 | Outpatient (CLI) | payer MEDICAID, SELFPAY ==
[2024-02-25 12:20] VITALS: BMI 38.0
--- NOTE | 2024-02-25 12:21 | ECG_ITS ---
[facility] Test Date: 2024-02-25 Pat Name: Deacon Win Department: Room: Gender: Male Hospitality Internship: : 1975 Requested By: Baltazar Saunders Order Number: [id number] Grover MD: Freddie Freire M.D. Interpretive Statements NAME OF STUDY: TREADMILL STRESS TEST INDICATION: [Chest Pain] EXERCISE DATA: The patient was exercised by Maxi protocol. Baseline heart rate was 67 beats per minute. Baseline blood pressure was 130/70 millimeters of mercury. Maximal predicted heart rate was 171 beats per minute. Maximum heart rate achieved was 145, which was 84% of the maximum predicted heart rate. Maximum blood pressure was 166/99 millimeters of mercury. Total exercise time was 8 minutes and 9 seconds. Maximum METs achieved was 10.2. The reason for ending the test was maximal effort achieved. The patient complained of shortness of breath during the stress test, which then resolved at the end of the test. ELECTROCARDIOGRAM: BASELINE: Showed sinus rhythm, normal axis, no significant ST-T changes at the baseline noted. [] EXERCISE: At the peak exercise level, [] No significant ST-T changes suggestive of ischemia noted. [] RECOVERY: During the recovery period, heart rate dropped appropriately. No significant ST-T changes in the recovery suggestive of ischemia noted. PVCs seen. [] CONCLUSION: 1. Exercise capacity is good. 2. Heart rate response was suboptimal. 3. Blood pressure response was appropriate 4. Symptoms not suggestive of ischemia. 5. Stress test does not show evidence of ischemia however patient reached borderline target heart rate (84% of maximum predicted). This decreases sensitivity of the test. Electronically Signed On 03-27-2024 14:55:02 CDT by Freddie Freire M.D. [email or web address]
[2024-02-25 13:01] VITALS: BP 163/62; PULSE 95
== END 2024-02-25 12:19 | disposition home or self-care (01) ==
PROVIDERS: PCP Family Medicine; Visit Provider Family Medicine
DX: R07.9 Chest pain, unspecified (principal); R06.02 Shortness of breath
CPT/HCPCS: 93017